=== PATIENT | female | born 1980 | race Caucasian/White ===

== ENCOUNTER 2016-11-10 07:52 | Outpatient (CLI) | payer OTHER ==
[2016-11-10] MEDS ORDERED: GADOBUTROL 10 MMOL/10 ML VIAL IVP ONE (09:27)
== END 2016-11-10 07:53 | disposition home or self-care (01) ==
DX: G43.009 Migraine without aura, not intractable, without status migrainosus (principal)
CPT/HCPCS: 70553; A9585

== ENCOUNTER 2016-11-14 09:08 | Outpatient (CLI) | payer OTHER | END 2016-11-14 09:09 | disposition home or self-care (01) | DX: E06.3 Autoimmune thyroiditis (principal); R59.0 Localized enlarged lymph nodes ==

== ENCOUNTER 2018-10-06 13:28 | Outpatient (CLI) | payer OTHER | END 2018-10-06 13:29 | disposition home or self-care (01) | LOC: SC 13:28 | PROVIDERS: ATTEND Internal Medicine Pulmonary Disease | DX: G47.00 Insomnia, unspecified (principal); G47.8 Other sleep disorders; R53.83 Other fatigue | CPT/HCPCS: 99203; 99212 ==

== ENCOUNTER 2018-10-30 20:20 | Outpatient (CLI) | payer OTHER | END 2018-10-30 20:21 | disposition home or self-care (01) | LOC: SC 20:20 | PROVIDERS: ATTEND Internal Medicine Pulmonary Disease | DX: G47.61 Periodic limb movement disorder (principal); R06.83 Snoring; G47.8 Other sleep disorders; R53.83 Other fatigue | CPT/HCPCS: 95810 ==

== ENCOUNTER 2018-12-15 10:18 | Outpatient (CLI) | payer OTHER | END 2018-12-15 10:19 | disposition home or self-care (01) | LOC: SC 10:18 | PROVIDERS: ATTEND Internal Medicine Pulmonary Disease | DX: G47.61 Periodic limb movement disorder (principal) | CPT/HCPCS: 99212; 99213 ==

== ENCOUNTER 2019-01-12 09:13 | Outpatient (CLI) | payer OTHER | END 2019-01-12 09:14 | disposition home or self-care (01) | LOC: SC 09:13 | PROVIDERS: ATTEND Internal Medicine Pulmonary Disease | DX: G47.61 Periodic limb movement disorder (principal); G47.00 Insomnia, unspecified | CPT/HCPCS: 99212; 99213 ==

== ENCOUNTER 2019-06-15 18:51 | Emergency (ER) | payer OTHER ==
[2019-06-15 18:56] VITALS: BP 137/87
--- NOTE | 2019-06-15 18:58 | ED Physician Documentation ---
History of Present Illness - Stated complaint Stated Complaint: FEM - Chief complaint Chief Complaint: Abd Pain - History obtained from History obtained from: Patient - History of Present Illness Timing: Today Pain level max: 2 Pain level now: 2 Improved by: nothing Worsened by: nothing - Additonal information Additional information: 38-year-old female presents to the emergency department with dysuria and hematuria. Started today. No fevers. No back pain. No vaginal discharge. Took Plan B yesterday. Had a new sexual partner on Saturday. Review of Systems Constitutional: denies: Fever GI: denies: Vomiting Skin: denies: Rash Musculoskeletal: denies: Neck pain, Back pain Neurologic: denies: Headache PD PAST MEDICAL HISTORY - Past Medical History Past Medical History: Yes Endocrine/Autoimmune: HyPOthyroidism - Past Surgical History Past Surgical History: Yes HEENT: Tonsil/Adenoidectomy - Present Medications Home Medications: Ambulatory Orders Medication Instructions Recorded Confirmed Esomeprazole Magnesium [Nexium] 02/21/14 02/21/14 Levothyroxine Sodium [Synthroid] 175 mcg PO 02/21/14 02/21/14 Modafinil [Provigil] 02/21/14 02/21/14 Nortriptyline HCl 150 02/21/14 02/21/14 Nitrofurantoin Monohyd/M-Cryst 100 mg PO BID #10 capsule 06/15/19 [Macrobid 100 mg Capsule] Phenazopyridine HCl [Pyridium] 200 mg PO TID PRN #6 tablet 06/15/19 - Allergies Allergies/Adverse Reactions: Allergies Allergy/AdvReac Type Severity Reaction Status Date / Time No Known Drug Allergies Allergy Verified 06/15/19 18:56 - Social History Does the pt smoke?: No Smoking Status: Never smoker Does the pt drink ETOH?: No Does the pt have substance abuse?: No - Immunizations Immunizations are current?: Yes PD ED PE NORMAL - Vitals Vital signs reviewed: Yes - General General: Alert and oriented X 3, No acute distress - HEENT HEENT: Moist mucous membranes - Neck Neck: Supple, no meningeal sign - Cardiac Cardiac: RRR - Respiratory Respiratory: No respiratory distress, Clear bilaterally - Abdomen Abdomen: Soft, Non tender, Non distended - Back Back: No CVA TTP - Derm Derm: Warm and dry - Neuro Neuro: Alert and oriented X 3 Results - Vitals Vitals: Vital Signs - 24 hr 06/15/19 18:53 Temperature 36.5 C Heart Rate 97 Respiratory 15 Rate Blood Pressure 137/87 H O2 Saturation 100 Oxygen O2 Source Room air - Labs Labs: Laboratory Tests 06/15/19 19:02 Urine Color RED/BLOODY Urine Clarity BLOODY Urine pH 7.0 Ur Specific [place] 1.020 Urine Protein >=300 H Urine Glucose (UA) NEGATIVE Urine Ketones 40 H Urine Occult Blood LARGE H Urine Nitrite POSITIVE H Urine Bilirubin NEGATIVE Urine Urobilinogen 1 (NORMAL) Ur Leukocyte Esterase SMALL H Urine RBC TNTC H Urine WBC >25 H Ur Squamous Epith Cells NONE SEEN Urine Bacteria Many H Ur Microscopic Review INDICATED Urine Culture Comments INDICATED Urine HCG, Qual NEGATIVE PD MEDICAL DECISION MAKING - ED course Complexity details: reviewed results, re-evaluated patient, considered differential, d/w patient ED course: 38-year-old female with a UTI. Will place on antibiotics for home. We will follow-up with her doctor for further care. Does not sound consistent with a sexually transmitted disease. No evidence of pyelonephritis. Patient counseled regarding signs and symptoms for which I believe and urgent re-evaluation would be necessary. Patient with good understanding of and agreement to plan and is comfortable going home at this time This document was made in part using voice recognition software. While efforts are made to proofread this document, sound alike and grammatical errors may occur. Departure - Departure Disposition: 01 Home, Self Care Clinical Impression: Urinary tract infection Qualifiers: Urinary tract infection type: acute cystitis Hematuria presence: with hematuria Qualified Code(s): N30.01 - Acute cystitis with hematuria Condition: Good Instructions: ED UTI Cystitis Female Follow-Up: Your,doctor in 1 week if not better [Other] Prescriptions: Nitrofurantoin Monohyd/M-Cryst [Macrobid 100 mg Capsule] 100 mg PO BID #10 capsule Phenazopyridine HCl [Pyridium] 200 mg PO TID PRN #6 tablet PRN Reason: dysuria Comments: Take all antibiotics until gone. Return if you worsen. Follow-up with your doctor in 1 week if not better. Return immediately for fevers or worsening pain. Discharge Date/Time: 06/15/19 20:05
[2019-06-15 19:25] LABS: BILIRUBIN,URINE NEGATIVE (NEGATIVE); GLUCOSE, URINE (UA) NEGATIVE (NEGATIVE); KETONES,URINE (UA) 40 mg/dL (NEGATIVE); LEUKOCYTE ESTERASE, URINE SMALL (NEGATIVE); NITRITE,URINE POSITIVE (NEGATIVE); OCCULT BLOOD,URINE LARGE (NEGATIVE); PROTEIN,URINE >=300 mg/dL (NEGATIVE); UROBILINOGEN,URINE 1 (NORMAL) E.U./dL (NORMAL)
[2019-06-15 19:29] LABS: CLARITY,URINE BLOODY (CLEAR); HCG UR QUAL NEGATIVE
[2019-06-15 19:30] LABS: BACTERIA,URINE Many /HPF (None Seen); RBC,URINE TNTC /HPF (0-5); SQUAMOUS EPITHELIAL CELL,UR NONE SEEN (<= Few)
[2019-06-15] MEDS ORDERED: NITROFURANTOIN MACRO 100 MG CAPSULE PO STA (19:38)
[2019-06-15] MEDS ORDERED: PHENAZOPYRIDINE 100 MG TABLET PO STA (19:38)
== END 2019-06-15 20:05 | disposition home or self-care (01) ==
LOC: ED 18:51
DX: N30.01 Acute cystitis with hematuria (principal)
CPT/HCPCS: 81001; 81025; 87086; 87181; 99283; 99284; A9270; 81003

== ENCOUNTER 2019-12-12 17:18 | Emergency (ER) | payer OTHER ==
--- NOTE | 2019-12-12 17:24 | ED Physician Documentation ---
PD HPI LOWER EXT INJURY - Stated complaint Stated Complaint: RT KNEE INJURY - Chief complaint Chief Complaint: Trauma Ext - History obtained from History obtained from: Patient - History of Present Illness PD HPI LOW EXT INJURY LOCATION: Right, Knee Type of injury: Fall (She was out hiking on a trail and her left foot slid causing her to fall forward onto her right knee. She has pain along the anteromedial aspect of the right knee. There is no twisting component. She states it hurts for weightbearing and the pushoff part of gait. No clicking popping or giving out. She has not had prior knee problems.) Where injury occurred: [place] Timing - onset: How many hours ago (2), Today Timing - details: Abrupt onset, Still present Worsened by: Moving, Palpating Associated symptoms: Swelling (swelling with bruising medial aspect knee). No: Weakness, Numbness Contributing factors: No: Prior ortho surgery Similar symptoms before: Has not had sx before Review of Systems Constitutional: denies: Fever Throat: denies: Sore throat Respiratory: denies: Dyspnea, Cough Skin: denies: Abrasion (s), Laceration (s) Musculoskeletal: reports: Joint pain (right knee only) Neurologic: denies: Focal weakness, Numbness PD PAST MEDICAL HISTORY - Past Medical History Endocrine/Autoimmune: HyPOthyroidism - Past Surgical History Past Surgical History: Yes HEENT: Tonsil/Adenoidectomy - Present Medications Home Medications: Ambulatory Orders Medication Instructions Recorded Confirmed Biotin 2 cap DAILY 12/12/19 12/12/19 Eszopiclone [Lunesta] 0.5 tab DAILY 12/12/19 12/12/19 Mecobalamin [B12 Active] 1 tab DAILY 12/12/19 12/12/19 Nortriptyline HCl 50 mg DAILY 12/12/19 12/12/19 - Allergies Allergies/Adverse Reactions: Allergies Allergy/AdvReac Type Severity Reaction Status Date / Time No Known Drug Allergies Allergy Verified 12/12/19 17:21 - Social History Does the pt smoke?: No Smoking Status: Never smoker Does the pt drink ETOH?: No Does the pt have substance abuse?: No - Immunizations Immunizations are current?: Yes PD ED PE NORMAL - Vitals Vital signs reviewed: Yes - General General: Alert and oriented X 3, No acute distress, Well developed/nourished - Derm Derm: Normal color, Warm and dry - Extremities Extremities: Other (There is a limping component to her gait. She is able to bear weight on both legs. The right knee shows some tenderness along the anteromedial aspect of the knee but not at the patella. The medial joint line is not tender. She is able to extend fully with the right knee without any quadriceps pain. The patellar tendon is intact. Ligamentous testing varus and valgus as well as cruciate testing did not show any laxity or pain. Modified [place] does not cause any meniscal type pain. There is no crepitance on passive range of motion. There is some localized bruising and swelling along the proximal medial tibial ridge.) Results - Vitals Vitals: Vital Signs - 24 hr 12/12/19 17:21 Temperature 36.7 C Heart Rate 94 Respiratory 16 Rate Blood Pressure 117/76 O2 Saturation 100 Oxygen O2 Source Room air - Rads (name of study) right knee Radiology: Prelim report reviewed, See rad report PD MEDICAL DECISION MAKING - ED course Complexity details: reviewed results, considered differential (Likely just localized bruising along the medial knee. No obvious ligamentous injury and it was not a twist component. Will get an x-ray to ensure no bony problems. She declines the need for crutches.), d/w patient Departure - Departure Disposition: 01 Home, Self Care Clinical Impression: Knee contusion Qualifiers: Encounter type: initial encounter Laterality: right Qualified Code(s): S80.01XA - Contusion of right knee, initial encounter Condition: Stable Record reviewed to determine appropriate education?: Yes Instructions: ED Contusion Lower Ext Comments: Your x-ray appears normal. The knee exam does not suggest any ligamentous tears or significant injury. I think it is just bruised well and should be sore for a few days and slowly better. Activity as tolerated. Ibuprofen 3 times a day for the next few days. Ice and elevate and Jp wrap for the swelling. Recheck if not improved over the next 3 to 5 days. Forms: Activity restrictions
[2019-12-12 17:25] VITALS: BP 117/76
[2019-12-12] MEDS ORDERED: IBUPROFEN 600 MG TABLET PO STA (17:35)
--- NOTE | 2019-12-12 18:16 | XRAY Report ---
Reason: fall to right knee/pain medially Procedure Date: 12/12/2019 Accession Number: [id number] / [id number] Procedure: XR - Knee 4 View RT CPT Code: Final Report FULL RESULT: EXAM: RIGHT KNEE RADIOGRAPHY EXAM DATE: 12/12/2019 06:06 PM. CLINICAL HISTORY: Fall to right knee/pain medially. COMPARISON: None. TECHNIQUE: 4 views. FINDINGS: Bones: Normal. No fractures or bone lesions. Joints: Normal. No effusion. No subluxations. Soft Tissues: Normal. No soft tissue swelling. IMPRESSION: Negative right knee RADIA
== END 2019-12-12 18:20 | disposition home or self-care (01) ==
LOC: ED 17:18
DX: S80.01XA Contusion of right knee, initial encounter (principal); W18.39XA Other fall on same level, initial encounter; Y93.01 Activity, walking, marching and hiking; Y92.830 Public park as the place of occurrence of the external cause
CPT/HCPCS: 73564; 99283; A9270

== ENCOUNTER 2020-04-07 21:00 | Emergency (ER) | payer OTHER ==
--- NOTE | 2020-04-07 21:08 | ED Physician Documentation ---
History of Present Illness - Stated complaint Stated Complaint: ALLERGIC REACTION - Chief complaint Chief Complaint: Neuro - History obtained from History obtained from: Patient - History of Present Illness Timing: Enter time (19:00), Today Pain level max: 0 Pain level now: 0 Improved by: nothing Worsened by: no exacerbating factors - Additonal information Additional information: c/o feeling jittery and generalized tremulousness, stuttering/stammering speech. symptoms began approximately 7 PM tonight. Patient is scheduled for allergy testing tomorrow; patient says that she was instructed to stop her lunesta, claritin, and nortriptylene 1 week ago. Review of Systems Constitutional: reports: Reviewed and negative Cardiac: reports: Reviewed and negative Respiratory: reports: Reviewed and negative GI: reports: Reviewed and negative : denies: Dysuria, Frequency, Now EGA Neurologic: reports: Difficulty speaking. denies: Generalized weakness, Focal weakness, Numbness, Confused, Altered mental status, Headache PD PAST MEDICAL HISTORY - Past Medical History Respiratory: Asthma, Sleep apnea Neuro: Migraines Endocrine/Autoimmune: HyPOthyroidism - Past Surgical History Past Surgical History: Yes HEENT: Tonsil/Adenoidectomy - Present Medications Home Medications: Ambulatory Orders Medication Instructions Recorded Confirmed Biotin 2 cap DAILY 12/12/19 12/12/19 Eszopiclone [Lunesta] 0.5 tab DAILY 12/12/19 12/12/19 Mecobalamin [B12 Active] 1 tab DAILY 12/12/19 12/12/19 Nortriptyline HCl 50 mg DAILY 12/12/19 12/12/19 - Allergies Allergies/Adverse Reactions: Allergies Allergy/AdvReac Type Severity Reaction Status Date / Time No Known Drug Allergies Allergy Verified 04/07/20 21:05 - Social History Does the pt smoke?: No Smoking Status: Never smoker Does the pt drink ETOH?: No Does the pt have substance abuse?: No - Immunizations Immunizations are current?: Yes PD ED PE NORMAL - Vitals Vital signs reviewed: Yes - General General: Alert and oriented X 3, Well developed/nourished, Other (tremulous (generalized); stammering speech) - HEENT HEENT: PERRL, EOMI, Moist mucous membranes - Neck Neck: Supple, no meningeal sign - Cardiac Cardiac: RRR, No murmur - Respiratory Respiratory: No respiratory distress, Clear bilaterally - Abdomen Abdomen: Soft, Non tender - Neuro Neuro: Alert and oriented X 3, psychology teacher 2-12 intact, No motor deficit, No sensory deficit Eye Opening: Spontaneous Motor: Obeys Commands Verbal: Oriented GCS Score: 15 - Psych Psych: Normal mood, Normal affect Results - Vitals Vitals: Vital Signs - 24 hr 04/07/20 04/07/20 04/07/20 21:01 21:26 21:38 Temperature 36.3 C L Heart Rate 100 95 91 Respiratory 18 13 11 L Rate Blood Pressure 122/90 H 143/73 H 110/67 O2 Saturation 98 98 99 04/07/20 04/07/20 04/07/20 22:06 22:32 23:00 Temperature Heart Rate 82 90 86 Respiratory 12 11 L 13 Rate Blood Pressure 120/79 114/68 120/72 O2 Saturation 100 100 100 04/07/20 23:30 Temperature Heart Rate 97 Respiratory 14 Rate Blood Pressure 99/67 O2 Saturation 100 Oxygen O2 Source Room air - Labs Labs: Laboratory Tests 04/07/20 04/07/20 21:46 21:46 WBC 6.6 RBC 3.83 L Hgb 12.1 Hct 36.0 L MCV 94.0 MCH 31.6 H MCHC 33.6 RDW 12.2 Plt Count 255 MPV 10.4 Neut # (Auto) 4.2 Lymph # (Auto) 1.8 [place] # (Auto) 0.4 Eos # (Auto) 0.1 Baso # (Auto) 0.0 Absolute Nucleated RBC 0.00 Nucleated RBC % 0.0 Sodium 141 Potassium 3.7 Chloride 108 Carbon Dioxide 26 Anion Gap 7.0 BUN 8 Creatinine 0.5 Estimated GFR (MDRD) 139 Glucose 114 H Calcium 9.2 Total Bilirubin 0.9 AST 17 ALT 22 Alkaline Phosphatase 28 L Total Protein 6.7 Albumin 4.7 Globulin 2.0 L Albumin/Globulin Ratio 2.4 H Lipase 30 PD MEDICAL DECISION MAKING - ED course Complexity details: reviewed results, re-evaluated patient, considered differential, d/w patient ED course: unremarkable blood test results. Improved without intervention; on reassessment, she is no longer tremulous and her speech is clear. I discussed with her possibility of discontinuation syndrome due to suddenly stopping her nortriptylene: although the time course of one week since last dose would be unusual, her symptoms are c/w this diagnosis. I suggested she restart her nortriptylene, but she prefers to have her allergy testing tomorrow and then resume her prescribed medications. Departure - Departure Disposition: 01 Home, Self Care Clinical Impression: Antidepressant discontinuation syndrome Condition: Good Instructions: ED Symptoms No Dx Follow-Up: Gage Faulkner MD [Primary Care Provider] - Comments: Your symptoms might be related to the recent discontinuation of the nortriptylene. After your tests tomorrow, resume taking the medication as prescribed. If the symptoms are due to stopping this medication, restarting it should rapidly lead to resolution of the symptoms (within hours). Otherwise, if symptoms continue, follow up with your primary care provider to discuss need for further testing Discharge Date/Time: 04/07/20 23:47
[2020-04-07 21:51] LABS: BASOPHILS % (AUTO) 0.6 %; EOSINOPHILS # (AUTO) 0.1 10^3/uL (0.0-0.7); EOSINOPHILS % (AUTO) 1.7 %; HGB - HEMOGLOBIN 12.1 g/dL (12.0-16.0); LYMPHOCYTES # (AUTO) 1.8 10^3/uL (1.5-3.5); LYMPHOCYTES % (AUTO) 27.9 %; MEAN CORPUSCULAR HEMOGLOBIN 31.6 pg (27.0-31.0); MEAN CORPUSCULAR HGB CONC 33.6 g/dL (32.0-36.0); MEAN PLATELET VOLUME 10.4 fL (7.9-10.8); MONOCYTES # (AUTO) 0.4 10^3/uL (0.0-1.0); NEUTROPHILS # (AUTO) 4.2 10^3/uL (1.5-6.6); NEUTROPHILS % (AUTO) 63.5 %; PLT - PLATELET COUNT 255 10^3/uL (130-450); RED BLOOD COUNT 3.83 10^6/uL (4.20-5.40); RED CELL DISTRIBUTION WIDTH 12.2 % (12.0-15.0); WHITE BLOOD COUNT 6.6 x10^3/uL (4.8-10.8)
[2020-04-07 22:04] LABS: ALBUMIN 4.7 g/dL (3.2-5.5); ALBUMIN/GLOBULIN RATIO 2.4 (1.0-2.2); BILIRUBIN,TOTAL 0.9 mg/dL (0.2-1.0); CALCIUM 9.2 mg/dL (8.5-10.3); CREATININE 0.5 mg/dL (0.4-1.0); TOTAL PROTEIN 6.7 g/dL (6.7-8.2)
[2020-04-07 23:42] VITALS: BP 99/67
== END 2020-04-07 23:47 | disposition home or self-care (01) ==
LOC: ED 21:00
DX: G25.2 Other specified forms of tremor (principal); R47.82 Fluency disorder in conditions classified elsewhere; T43.015A Adverse effect of tricyclic antidepressants, initial encounter
CPT/HCPCS: 36415; 80053; 83690; 85025; 99284

== ENCOUNTER 2020-05-24 15:54 | Outpatient (CLI) | payer OTHER ==
--- NOTE | 2020-05-24 17:27 | MRI Report ---
PROCEDURE: Foot LT W/O INDICATIONS: LT FOOT PAIN TECHNIQUE: Noncontrast coronal and sagittal T1 spin echo and STIR; axial T1 spin echo and T2 fast spin echo with fat saturation through the left foot. COMPARISON: None. FINDINGS: Image quality: Excellent. Bones: The visualized bone marrow demonstrates normal signal on all sequences. The overlying cortex appears intact. No fractures lines or intra-osseous lesions. Soft tissues: There is subcutaneous soft tissue edema in the region of the fiducial marker placed al delta the lateral aspect of the forefoot at the fifth metatarsal base. There is normal appearance of th e underlying peroneus brevis tendon. No discrete mass identified. Mild posterior tibialis tenosynovitis. IMPRESSION: Nonspecific subcutaneous presumed infectious or inflammatory cellulitis and edema in the area marked by the fiducial, at the fifth metatarsal base. No evidence of fracture. No discrete mass identified. No focal fluid collection. Recommend clinical correlation and management. Mild posterior tibialis tenosynovitis Reviewed by: Moe Chow MD on 05/24/2020 5:25 PM PDT Approved by: Moe Chow MD on 05/24/2020 5:25 PM PDT Station ID: [id number]
== END 2020-05-24 15:55 | disposition home or self-care (01) ==
LOC: DI 15:54
DX: M65.872 Other synovitis and tenosynovitis, left ankle and foot (principal)

== ENCOUNTER 2020-06-23 16:35 | Emergency (ER) | payer OTHER ==
[2020-06-23 17:13] LABS: BASOPHILS % (AUTO) 0.5 %; EOSINOPHILS # (AUTO) 0.1 10^3/uL (0.0-0.7); EOSINOPHILS % (AUTO) 2.4 %; HGB - HEMOGLOBIN 12.5 g/dL (12.0-16.0); LYMPHOCYTES # (AUTO) 1.7 10^3/uL (1.5-3.5); LYMPHOCYTES % (AUTO) 31.3 %; MEAN CORPUSCULAR HEMOGLOBIN 31.3 pg (27.0-31.0); MEAN CORPUSCULAR HGB CONC 32.3 g/dL (32.0-36.0); MEAN CORPUSCULAR VOLUME 96.8 fL (81.0-99.0); MEAN PLATELET VOLUME 9.8 fL (7.9-10.8); MONOCYTES # (AUTO) 0.3 10^3/uL (0.0-1.0); MONOCYTES % (AUTO) 5.7 %; NEUTROPHILS # (AUTO) 3.3 10^3/uL (1.5-6.6); NEUTROPHILS % (AUTO) 59.7 %; PLT - PLATELET COUNT 255 10^3/uL (130-450); WHITE BLOOD COUNT 5.5 x10^3/uL (4.8-10.8)
[2020-06-23 17:27] LABS: ALBUMIN 4.4 g/dL (3.2-5.5); ALBUMIN/GLOBULIN RATIO 1.6 (1.0-2.2); BILIRUBIN,TOTAL 0.5 mg/dL (0.2-1.0); CALCIUM 9.4 mg/dL (8.5-10.3); CREATININE 0.7 mg/dL (0.4-1.0); TOTAL PROTEIN 7.1 g/dL (6.7-8.2)
[2020-06-23 17:28] LABS: BILIRUBIN,URINE NEGATIVE (NEGATIVE); GLUCOSE, URINE (UA) NEGATIVE (NEGATIVE); KETONES,URINE (UA) NEGATIVE (NEGATIVE); LEUKOCYTE ESTERASE, URINE NEGATIVE (NEGATIVE); NITRITE,URINE NEGATIVE (NEGATIVE); OCCULT BLOOD,URINE NEGATIVE (NEGATIVE); PROTEIN,URINE NEGATIVE (NEGATIVE); UROBILINOGEN,URINE 0.2 (NORMAL) E.U./dL (NORMAL)
[2020-06-23 17:31] LABS: CLARITY,URINE CLEAR (CLEAR); HCG UR QUAL NEGATIVE
--- NOTE | 2020-06-23 17:54 | ED Physician Documentation ---
History of Present Illness - Stated complaint Stated Complaint: FATIGUE - Chief complaint Chief Complaint: General - History obtained from History obtained from: Patient - History of Present Illness Timing: Today Pain level max: 0 Pain level now: 0 - Additonal information Additional information: 39-year-old female presents the emergency department stating that she has felt weak for the past several weeks, she states she has had issues with hypoglycemia in the past and has been checking her blood sugar throughout the day. The lowest blood sugar was approximately 76. She states that she feels better for about 15 minutes after she eats. Has seen an paintings restorer in the past but not recently. No changes to her medications. Unclear what other work-up has been done. Nothing makes it worse Review of Systems Ten Systems: 10 systems reviewed and negative Constitutional: denies: Fever, Chills Nose: denies: Rhinorrhea / runny nose, Congestion Throat: denies: Sore throat Cardiac: denies: Chest pain / pressure Respiratory: denies: Dyspnea, Cough GI: denies: Abdominal Pain, Nausea, Vomiting, Diarrhea : denies: Now EGA Skin: denies: Rash Musculoskeletal: denies: Neck pain, Back pain Neurologic: denies: Headache PD PAST MEDICAL HISTORY - Past Medical History Respiratory: Asthma, Sleep apnea Neuro: Migraines Endocrine/Autoimmune: HyPOthyroidism - Past Surgical History Past Surgical History: Yes HEENT: Tonsil/Adenoidectomy - Present Medications Home Medications: Ambulatory Orders Medication Instructions Recorded Confirmed Biotin 2 cap DAILY 12/12/19 12/12/19 Eszopiclone [Lunesta] 0.5 tab DAILY 12/12/19 12/12/19 Mecobalamin [B12 Active] 1 tab DAILY 12/12/19 12/12/19 Nortriptyline HCl 50 mg DAILY 12/12/19 12/12/19 - Allergies Allergies/Adverse Reactions: Allergies Allergy/AdvReac Type Severity Reaction Status Date / Time No Known Drug Allergies Allergy Verified 06/23/20 16:46 - Social History Does the pt smoke?: No Smoking Status: Never smoker Does the pt drink ETOH?: No Does the pt have substance abuse?: No - Immunizations Immunizations are current?: Yes - POLST Patient has POLST: No PD ED PE NORMAL - Vitals Vital signs reviewed: Yes - General General: Alert and oriented X 3, No acute distress - HEENT HEENT: Moist mucous membranes - Neck Neck: Supple, no meningeal sign - Cardiac Cardiac: RRR, Strong equal pulses - Respiratory Respiratory: No respiratory distress, Clear bilaterally - Abdomen Abdomen: Soft, Non tender, Non distended - Derm Derm: Warm and dry - Neuro Neuro: Alert and oriented X 3 - Psych Psych: Normal mood, Normal affect Results - Vitals Vitals: Vital Signs - 24 hr 06/23/20 06/23/20 16:47 18:06 Temperature 36.9 C 36.4 C L Heart Rate 85 79 Respiratory 16 17 Rate Blood Pressure 132/67 H 110/80 O2 Saturation 100 100 Oxygen O2 Source Room air - Labs Labs: Laboratory Tests 06/23/20 06/23/20 06/23/20 16:46 17:10 17:10 WBC 5.5 RBC 4.00 L Hgb 12.5 Hct 38.7 MCV 96.8 MCH 31.3 H MCHC 32.3 RDW 12.0 Plt Count 255 MPV 9.8 Neut # (Auto) 3.3 Lymph # (Auto) 1.7 [place] # (Auto) 0.3 Eos # (Auto) 0.1 Baso # (Auto) 0.0 Absolute Nucleated RBC 0.00 Nucleated RBC % 0.0 Sodium 141 Potassium 4.6 Chloride 103 Carbon Dioxide 26 Anion Gap 12.0 BUN 13 Creatinine 0.7 Estimated GFR (MDRD) 94 Glucose 85 POC Whole Bld Glucose 88 Calcium 9.4 Total Bilirubin 0.5 AST 15 ALT 21 Alkaline Phosphatase 31 L Total Protein 7.1 Albumin 4.4 Globulin 2.7 Albumin/Globulin Ratio 1.6 Lipase 35 Urine Color Urine Clarity Urine pH Ur Specific [place] Urine Protein Urine Glucose (UA) Urine Ketones Urine Occult Blood Urine Nitrite Urine Bilirubin Urine Urobilinogen Ur Leukocyte Esterase Ur Microscopic Review Urine Culture Comments Urine HCG, Qual 06/23/20 17:23 WBC RBC Hgb Hct MCV MCH MCHC RDW Plt Count MPV Neut # (Auto) Lymph # (Auto) [place] # (Auto) Eos # (Auto) Baso # (Auto) Absolute Nucleated RBC Nucleated RBC % Sodium Potassium Chloride Carbon Dioxide Anion Gap BUN Creatinine Estimated GFR (MDRD) Glucose POC Whole Bld Glucose Calcium Total Bilirubin AST ALT Alkaline Phosphatase Total Protein Albumin Globulin Albumin/Globulin Ratio Lipase Urine Color YELLOW Urine Clarity CLEAR Urine pH 7.0 Ur Specific [place] 1.020 Urine Protein NEGATIVE Urine Glucose (UA) NEGATIVE Urine Ketones NEGATIVE Urine Occult Blood NEGATIVE Urine Nitrite NEGATIVE Urine Bilirubin NEGATIVE Urine Urobilinogen 0.2 (NORMAL) Ur Leukocyte Esterase NEGATIVE Ur Microscopic Review NOT INDICATED Urine Culture Comments NOT INDICATED Urine HCG, Qual NEGATIVE PD MEDICAL DECISION MAKING - ED course Complexity details: reviewed results, re-evaluated patient, considered differential, d/w patient ED course: Unclear etiology of the patient's symptoms. No acute laboratory findings. No hypoglycemia. No anemia. She would likely benefit from an autoimmune disease work-up as well is likely checking her vitamin levels. Patient is well- appearing, nontoxic. Afebrile. Ambulating with a normal steady gait here. We will have her follow-up with her doctor for further care. Patient counseled regarding signs and symptoms for which I believe and urgent re-evaluation would be necessary. Patient with good understanding of and agreement to plan and is comfortable going home at this time This document was made in part using voice recognition software. While efforts are made to proofread this document, sound alike and grammatical errors may occur. Departure - Departure Disposition: 01 Home, Self Care Clinical Impression: Fatigue Qualifiers: Fatigue type: unspecified Qualified Code(s): R53.83 - Other fatigue Condition: Good Instructions: ED Weakness [facility] Follow-Up: López Richardson MD [Physician No Access] - Within 1 week Comments: Your symptoms is unclear today. You should follow-up with your doctor and/or endocrinology for further care. If you have not been tested for autoimmune disorders, this should be performed. Your doctor can order these tests for you. Discharge Date/Time: 06/23/20 18:13
[2020-06-23 18:07] VITALS: BP 110/80
== END 2020-06-23 18:13 | disposition home or self-care (01) ==
LOC: ED 16:35
DX: R53.83 Other fatigue (principal)
CPT/HCPCS: 36415; 80053; 81001; 81003; 81025; 83690; 85025; 87086; 99283; 99284

== ENCOUNTER 2020-11-01 13:59 | Emergency (ER) | payer OTHER ==
--- NOTE | 2020-11-01 14:13 | ED Physician Documentation ---
PD HPI ABD PAIN - Stated complaint Stated Complaint: ABD CRAMPING/BACK PX - Chief complaint Chief Complaint: Abd Pain - History obtained from History obtained from: Patient - History of Present Illness Timing - onset: Yesterday Timing - duration: Days (2) Timing - details: Gradual onset, Still present, Waxing and waning (coming in waves of cramping pain) Quality: Cramping, Aching, Fullness/distended. No: Sharp Location: Periumbilical, RLQ, LLQ Radiation: Lower back. No: Left flank, Right flank Improved by: Laying still Worsened by: Eating, Moving, Palpation. No: Breathing Associated symptoms: Nausea, Constipation (had not had BM for 2-3 days, and then was firm with some straining.). No: Fever, Vomiting, Diarrhea Similar symptoms before: No diagnosis (Dx with IBS due to cramping pains intermittently.) Recently seen: Not recently seen Review of Systems Constitutional: denies: Fever, Chills Nose: denies: Rhinorrhea / runny nose, Congestion Throat: denies: Sore throat Respiratory: denies: Cough GI: reports: Abdominal Pain, Abdominal Swelling, Nausea, Constipation. 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 - Past Surgical History Past Surgical History: Yes HEENT: Tonsil/Adenoidectomy - Present Medications Home Medications: Ambulatory Orders Medication Instructions Recorded Confirmed Biotin 2 cap DAILY 12/12/19 11/01/20 Eszopiclone [Lunesta] 0.5 tab DAILY 12/12/19 12/12/19 Mecobalamin [B12 Active] 1 tab DAILY 12/12/19 11/01/20 Nortriptyline HCl 50 mg DAILY 12/12/19 11/01/20 Ibuprofen [Motrin] 600 mg PO TID PRN #25 tab 11/01/20 Levothyroxine Sodium [Synthroid] 224 mcg PO DAILY 11/01/20 11/01/20 polyethylene glycoL 3350 [Miralax] 17 gm PO DAILY PRN #1 bottle 11/01/20 - Allergies Allergies/Adverse Reactions: Allergies Allergy/AdvReac Type Severity Reaction Status Date / Time No Known Drug Allergies Allergy Verified 11/01/20 14:09 - Social History Does the pt smoke?: No Smoking Status: Never smoker Does the pt drink ETOH?: No Does the pt have substance abuse?: No - Immunizations Immunizations are current?: Yes - POLST Patient has POLST: No PD ED PE NORMAL - Vitals Vital signs reviewed: Yes - General General: Alert and oriented X 3, Well developed/nourished, Other (appears in pain with lower abd tenderness, waves of crampy pain. ) - Neck Neck: Supple, no meningeal sign, No adenopathy - Cardiac Cardiac: RRR, No murmur - Respiratory Respiratory: Clear bilaterally - Abdomen Abdomen: Normal bowel sounds, Soft, No organomegaly, Other (her abd is generally distended but particularly lower abd. With increased bowel sounds left abd and central. Tender mid abd to lower abd with some guarding. No percussion tenderness. ) - Female Female : Deferred - Rectal Rectal: Deferred - Back Back: No CVA TTP - Derm Derm: Normal color, Warm and dry Results - Vitals Vitals: Vital Signs - 24 hr 11/01/20 11/01/20 11/01/20 14:02 14:23 16:32 Temperature 36 C L 36.8 C 36.6 C Heart Rate 87 76 84 Respiratory 18 16 18 Rate Blood Pressure 119/74 132/76 H 123/77 O2 Saturation 99 100 100 11/01/20 17:19 Temperature Heart Rate 78 Respiratory 14 Rate Blood Pressure 126/78 O2 Saturation 100 Oxygen O2 Source Room air - Labs Labs: Laboratory Tests 11/01/20 11/01/20 11/01/20 14:18 14:18 14:44 WBC 6.3 RBC 4.08 L Hgb 12.9 Hct 38.8 MCV 95.1 MCH 31.6 H MCHC 33.2 RDW 12.1 Plt Count 248 MPV 10.4 Neut # (Auto) 4.1 Lymph # (Auto) 1.7 [place] # (Auto) 0.3 Eos # (Auto) 0.1 Baso # (Auto) 0.0 Absolute Nucleated RBC 0.00 Nucleated RBC % 0.0 Sodium 141 Potassium 3.9 Chloride 102 Carbon Dioxide 25 Anion Gap 14.0 H BUN 11 Creatinine 0.7 Estimated GFR (MDRD) 94 Glucose 91 Calcium 9.6 Total Bilirubin 0.4 AST 19 ALT 20 Alkaline Phosphatase 32 L Total Protein 7.6 Albumin 4.7 Globulin 2.9 Albumin/Globulin Ratio 1.6 Lipase 30 Urine Color YELLOW Urine Clarity CLEAR Urine pH 7.5 Ur Specific [place] 1.010 Urine Protein NEGATIVE Urine Glucose (UA) NEGATIVE Urine Ketones NEGATIVE Urine Occult Blood MODERATE H Urine Nitrite NEGATIVE Urine Bilirubin NEGATIVE Urine Urobilinogen 0.2 (NORMAL) Ur Leukocyte Esterase NEGATIVE Urine RBC 0-5 Urine WBC 0-3 Ur Squamous Epith Cells RARE Squamous Urine Bacteria None Seen Ur Microscopic Review INDICATED Urine Culture Comments NOT INDICATED Urine HCG, Qual NEGATIVE - Rads (name of study) abd CT Radiology: Prelim report reviewed (no acute process to explain the pain), See rad report PD MEDICAL DECISION MAKING - ED course Complexity details: reviewed results (no acute findings to explain pain. ), re- evaluated patient (improved with fluids and pain meds. ), considered differential, d/w patient Departure - Departure Disposition: 01 Home, Self Care Clinical Impression: Bilateral lower abdominal cramping Constipation Qualifiers: Constipation type: unspecified constipation type Qualified Code(s): K59.00 - Constipation, unspecified Condition: Stable Record reviewed to determine appropriate education?: Yes Instructions: ED Abdominal Pain Unkn Cause, ED Constipation Follow-Up: [facility] [Provider Group] Prescriptions: polyethylene glycoL 3350 [Miralax] 17 gm PO DAILY PRN #1 bottle PRN Reason: Constipation Ibuprofen [Motrin] 600 mg PO TID PRN #25 tab PRN Reason: Pain Comments: Your urine test, lab test, CT scan did not show an acute abnormality. There is unevenness of stool and air clumped in the lower intestine we will presume this is causing the pain and cramping. Continue usual fiber. To that add MiraLAX 1 capful (17 g) in a glass of water every 1-2 hours until having a little softer stool. You can continue it then once or twice daily for the next week and then use it as needed. Use the mineral oil suppository at home to help soften on the lower end and stimulate the intestines. Tylenol or ibuprofen as needed for pains. Recheck if not improved well over the next day or 2. Forms: Activity restrictions Discharge Date/Time: 11/01/20 17:23
[2020-11-01 14:24] LABS: BASOPHILS % (AUTO) 0.5 %; EOSINOPHILS # (AUTO) 0.1 10^3/uL (0.0-0.7); EOSINOPHILS % (AUTO) 1.9 %; HGB - HEMOGLOBIN 12.9 g/dL (12.0-16.0); LYMPHOCYTES # (AUTO) 1.7 10^3/uL (1.5-3.5); LYMPHOCYTES % (AUTO) 26.6 %; MEAN CORPUSCULAR HEMOGLOBIN 31.6 pg (27.0-31.0); MEAN CORPUSCULAR HGB CONC 33.2 g/dL (32.0-36.0); MEAN CORPUSCULAR VOLUME 95.1 fL (81.0-99.0); MEAN PLATELET VOLUME 10.4 fL (7.9-10.8); MONOCYTES # (AUTO) 0.3 10^3/uL (0.0-1.0); MONOCYTES % (AUTO) 5.4 %; NEUTROPHILS # (AUTO) 4.1 10^3/uL (1.5-6.6); NEUTROPHILS % (AUTO) 65.4 %; PLT - PLATELET COUNT 248 10^3/uL (130-450); RED BLOOD COUNT 4.08 10^6/uL (4.20-5.40); RED CELL DISTRIBUTION WIDTH 12.1 % (12.0-15.0); WHITE BLOOD COUNT 6.3 x10^3/uL (4.8-10.8)
[2020-11-01 14:42] LABS: ALBUMIN 4.7 g/dL (3.2-5.5); ALBUMIN/GLOBULIN RATIO 1.6 (1.0-2.2); BILIRUBIN,TOTAL 0.4 mg/dL (0.2-1.0); CALCIUM 9.6 mg/dL (8.5-10.3); CREATININE 0.7 mg/dL (0.4-1.0); TOTAL PROTEIN 7.6 g/dL (6.7-8.2)
[2020-11-01] MEDS ORDERED: HYDROmorphone 1 MG/ML CARPUJECT IVP STA (14:53)
[2020-11-01] MEDS ORDERED: KETOROLAC 30 MG/ML VIAL IVP STA (14:53)
[2020-11-01] MEDS ORDERED: SODIUM CHLORIDE 0.9% 1,000 ML IV STA (14:53)
[2020-11-01] MEDS ORDERED: ONDANSETRON 4 MG/2 ML VIAL IVP STA (14:53)
[2020-11-01 15:01] LABS: BILIRUBIN,URINE NEGATIVE (NEGATIVE); GLUCOSE, URINE (UA) NEGATIVE (NEGATIVE); KETONES,URINE (UA) NEGATIVE (NEGATIVE); LEUKOCYTE ESTERASE, URINE NEGATIVE (NEGATIVE); NITRITE,URINE NEGATIVE (NEGATIVE); OCCULT BLOOD,URINE MODERATE (NEGATIVE); PH,URINE 7.5 PH (5.0-7.5); PROTEIN,URINE NEGATIVE (NEGATIVE); UROBILINOGEN,URINE 0.2 (NORMAL) E.U./dL (NORMAL)
[2020-11-01 15:02] LABS: CLARITY,URINE CLEAR (CLEAR); HCG UR QUAL NEGATIVE
[2020-11-01 15:04] LABS: RBC,URINE 0-5 /HPF (0-5)
[2020-11-01 15:05] LABS: BACTERIA,URINE None Seen /HPF (None Seen); SQUAMOUS EPITHELIAL CELL,UR RARE Squamous (<= Few)
[2020-11-01] MEDS ORDERED: IOVERSOL 320 100 ML VIAL IVP ONE ×2 (15:07→15:11)
--- NOTE | 2020-11-01 15:40 | CT Report ---
PROCEDURE: Abdomen/Pelvis W INDICATIONS: Lower abd pain and distension. CONTRAST: IV CONTRAST: Optiray 320 ml: 100 PO CONTRAST: Optiray 320 ml100 TECHNIQUE: After the administration of intravenous and oral contrast, 5 mm thick sections acquired from the diap hragms to the symphysis. 5 mm thick coronal and sagittal reformats were acquired. For radiation dos e reduction, the following was used: automated exposure control, adjustment of mA and/or kV accordin g to patient size. COMPARISON: None. FINDINGS: Image quality: Excellent. ABDOMEN: Lung bases: Lung bases are clear. Heart size is normal. Solid organs: Liver and spleen are normal in size and enhancement. Gallbladder is unremarkable. Bi liary system is non dilated. Pancreas enhances normally. No adrenal nodules. Kidneys demonstrate n ormal size and enhancement, without hydronephrosis. Peritoneum and bowel: Appendix is normal. Bowel loops demonstrate normal wall thickness and caliber. No free fluid or air. Nodes and vessels: No retroperitoneal or mesenteric adenopathy by size criteria. Aorta and inferior vena cava are normal in size. Miscellaneous: No ventral hernias. PELVIS: Genitourinary: Small volume free pelvic fluid is within physiologic normal limits. IUD noted in the u terus, grossly normal in position. Small amount of fluid in the uterine cavity is presumably physiolo gic in nature. Ovaries heart normal. Miscellaneous: No inguinal hernias or adenopathy. Bones: No suspicious bony lesions. No vertebral body compression fractures. IMPRESSION: No acute finding to explain abdominal pain. IUD noted in the uterus, grossly normal in appearance by CT although ultrasound and physical examinat ion are better suited for evaluation of IUD position. Reviewed by: Steve Shoemaker MD on 11/01/2020 3:39 PM PST Approved by: Steve Shoemaker MD on 11/01/2020 3:39 PM PST Station ID: [id number]
[2020-11-01] MEDS ORDERED: DOCUSATE SODIUM 100 MG CAPSULE PO STA (15:47)
[2020-11-01] MEDS ORDERED: MAGNESIUM CITRATE 296 ML BOTTLE PO STA (15:47)
[2020-11-01] MEDS ORDERED: MINERAL OIL ENEMA 133 ML BOTTLE RC STA (15:48)
[2020-11-01 17:23] VITALS: BP 126/78
== END 2020-11-01 17:23 | disposition home or self-care (01) ==
LOC: ED 13:59
DX: K59.00 Constipation, unspecified (principal); R10.31 Right lower quadrant pain; R10.32 Left lower quadrant pain
CPT/HCPCS: 36415; 74177; 80053; 81001; 81025; 83690; 85025; 96374; 99284; A9270; J1170; Q9967; 81003; 87086

== ENCOUNTER 2021-08-28 00:29 | Emergency (ER) | payer OTHER ==
[2021-08-28] MEDS ORDERED: CHERRY SYRUP 10 ML UDC PO ONE (02:02)
[2021-08-28] MEDS ORDERED: DEXAMETHASONE 10 MG/ML VIAL PO STA (02:02)
--- NOTE | 2021-08-28 02:12 | ED Physician Documentation ---
PD HPI HEENT - Stated complaint Stated Complaint: COUGH/R SIDE FACE PX - Chief complaint Chief Complaint: Heent - History obtained from History obtained from: Patient - History of Present Illness Timing - onset: How many weeks ago (1) Timing - duration: Weeks (1) Timing - details: Gradual onset, Still present Location: Sinuses Improves: Medication Worsens: Swalllowing Associated symptoms: Congestion, Rhinorrhea, Cough, Other (right sided facial pain) Similar symptoms before: Diagnosis (sinusitis) Recently seen: Not recently seen - Additional information Additional information: 41-year-old female with a history of chronic sinusitis and otitis has developed a cough and congestion. She is on decongestants and has had some intermittent drainage and now has developed some facial pain on the right side and especially severe pain with coughing. 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 She has had pressure equalization tubes placed into both ears twice in the past 2 years which helped a lot with the frequent infections she has sustained. She does see an ear nose and throat doctor in [place]. Review of Systems Constitutional: denies: Fever Eyes: denies: Loss of vision, Decreased vision, Photophobia Ears: reports: Loss of hearing. denies: Ear pain, Drainage/discharge Nose: reports: Rhinorrhea / runny nose, Congestion, Sinus pressure / pain Throat: reports: Other (lost voice). denies: Sore throat Cardiac: denies: Chest pain / pressure, Palpitations Respiratory: reports: Cough. 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 - Past Surgical History Past Surgical History: Yes HEENT: Tonsil/Adenoidectomy - Present Medications Home Medications: Ambulatory Orders Medication Instructions Recorded Confirmed Biotin 2 cap DAILY 12/12/19 11/01/20 Eszopiclone [Lunesta] 0.5 tab DAILY 12/12/19 12/12/19 Mecobalamin [B12 Active] 1 tab DAILY 12/12/19 11/01/20 Nortriptyline HCl 50 mg DAILY 12/12/19 11/01/20 Ibuprofen [Motrin] 600 mg PO TID PRN #25 tab 11/01/20 Levothyroxine Sodium [Synthroid] 224 mcg PO DAILY 11/01/20 11/01/20 polyethylene glycoL 3350 [Miralax] 17 gm PO DAILY PRN #1 bottle 11/01/20 Amox/Clav 875/125 [Augmentin] 1 each PO Q12H #20 tablet 08/28/21 Benzocaine/Menthol [Sore Throat 1 lozenge PO DAILY 08/28/21 08/28/21 15-2.6 mg Lozenge] Pseudoephedrine [Sudafed] 30 mg PO DAILY 08/28/21 08/28/21 guaiFENesin [Mucus Relief ER] 600 mg PO BID 08/28/21 08/28/21 - Allergies Allergies/Adverse Reactions: Allergies Allergy/AdvReac Type Severity Reaction Status Date / Time No Known Drug Allergies Allergy Verified 08/28/21 00:51 - Social History Does the pt smoke?: No Smoking Status: Never smoker Does the pt drink ETOH?: No Does the pt have substance abuse?: No - Immunizations Immunizations are current?: Yes - POLST Patient has POLST: No PD ED PE NORMAL - Vitals Vital signs reviewed: Yes (hypertensive ) - General General: Alert and oriented X 3, No acute distress, Well developed/nourished - HEENT HEENT: Atraumatic, PERRL, EOMI, Other (both TM's have PE tubes in place with open orifice, no drainage and only minimal inflamation in the attic on the left. mild point tenderness to the right maxillary sinus. 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 Mild maxillary sinus disease without evidence of fluid levels.), EMP read indepedently, See rad report PD MEDICAL DECISION MAKING - ED course Complexity details: reviewed old records, reviewed results, re-evaluated patient, considered differential, d/w patient ED course: 41-year-old female with a history of frequent sinus and ear infections has developed infection over the past week with a cough that is particularly painful around the right eye. She has maxillary sinus point tenderness and minimal sinus disease on CT. The patient is symptomatic has prior experience with infection and she is a bit concerned that may be this issue with her pituitary macroadenoma may cause some of this issue with pain in her periorbital tissues on the right side. For this reason a screening CT of the sinus was obtained and shows minimal disease. She is treated here in the emergency department with dexamethasone and we will place her on a course of Augmentin. Departure - Departure Disposition: 01 Home, Self Care Clinical Impression: Sinusitis Qualifiers: Sinusitis location: maxillary Chronicity: acute Recurrence: recurrent Qualified Code(s): J01.01 - Acute recurrent maxillary sinusitis Condition: Stable Instructions: ED Sinusitis Abx Tx Follow-Up: [facility] [Provider Group] Prescriptions: Amox/Clav 875/125 [Augmentin] 1 each PO Q12H #20 tablet
[2021-08-28 03:28] VITALS: BP 139/82
[2021-08-28] MEDS ORDERED: AMOX/CLAV 875 MG/125 MG TABLET PO STA (03:28)
--- NOTE | 2021-08-28 09:14 | CT Report ---
PROCEDURE: Sinuses INDICATIONS: right facial pain TECHNIQUE: Noncontrast 3.0 mm axial images acquired from the frontal sinuses to the mid-sella, with coronal and sagittal reformats. For radiation dose reduction, the following was used: automated exposure control , adjustment of mA and/or kV according to patient size. COMPARISON: None. FINDINGS: Image quality: Excellent. Sinuses: There is minimal pansinus mucosal thickening. Small mucous retention cyst versus polyp is p resent in both the left and right maxillary sinuses. No fluid levels are identified. Ostiomeatal Complexes: Ostiomeatal complexes are patent. No Yoanna cells. Miscellaneous: Visualized intra-orbital contents are normal. No dawna bullosa. No nasal septal de viation. IMPRESSION: Minimal pansinus mucosal thickening most prominent in the maxillary sinuses without fluid levels. The above findings are concordant with preliminary report. Reviewed by: Malinda Moody MD on 08/28/2021 9:13 AM PST Approved by: Malinda Moody MD on 08/28/2021 9:13 AM PST Station ID: [id number]
== END 2021-08-28 03:33 | disposition home or self-care (01) ==
LOC: ED 00:29
DX: J01.01 Acute recurrent maxillary sinusitis (principal); D35.2 Benign neoplasm of pituitary gland
CPT/HCPCS: 70486; 99284; A9270

== ENCOUNTER 2022-01-13 21:32 | Emergency (ER) | payer OTHER ==
[2022-01-13 21:40] VITALS: BP 150/80
--- NOTE | 2022-01-13 21:41 | ED Physician Documentation ---
PD HPI HEADACHE - Stated complaint Stated Complaint: HEAD PX - Chief complaint Chief Complaint: General - History obtained from History obtained from: Patient - History of Present Illness Timing - onset: How many days ago (2) Timing - details: Gradual onset Worst headache ever?: No: Worst headache ever? Location: Front Quality: Aching Associated symptoms: No: Fever, Nausea, Vomiting Similar symptoms before: Diagnosis (sinusitis) Recently seen: Clinic - Additional information Additional information: c/o cough x 2 days, productive of green/yellow sputum, and frontal headache/facial pain in areas of bilateral frontal and maxillary sinuses. She c/o sinus congestion. She denies fever. She is COVID vaccinated with booster. She was evaluated at [facility], no rx provided. She says her symptoms have progressed since being evaluated, particularly the sinus congestion and pain. The pain is exacerbated with coughing Review of Systems Constitutional: denies: Fever, Chills, Sweats Ears: denies: Ear pain Nose: reports: Congestion, Sinus pressure / pain Throat: denies: Sore throat Respiratory: reports: Cough. 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 - Past Surgical History Past Surgical History: Yes HEENT: Tonsil/Adenoidectomy - Present Medications Home Medications: Ambulatory Orders Medication Instructions Recorded Confirmed Biotin 2 cap DAILY 12/12/19 11/01/20 Eszopiclone [Lunesta] 0.5 tab DAILY 12/12/19 12/12/19 Mecobalamin [B12 Active] 1 tab DAILY 12/12/19 11/01/20 Nortriptyline HCl 50 mg DAILY 12/12/19 11/01/20 Ibuprofen [Motrin] 600 mg PO TID PRN #25 tab 11/01/20 Levothyroxine Sodium [Synthroid] 224 mcg PO DAILY 11/01/20 11/01/20 polyethylene glycoL 3350 [Miralax] 17 gm PO DAILY PRN #1 bottle 11/01/20 Amox/Clav 875/125 [Augmentin] 1 each PO Q12H #20 tablet 08/28/21 Benzocaine/Menthol [Sore Throat 1 lozenge PO DAILY 08/28/21 08/28/21 15-2.6 mg Lozenge] Pseudoephedrine [Sudafed] 30 mg PO DAILY 08/28/21 08/28/21 guaiFENesin [Mucus Relief ER] 600 mg PO BID 08/28/21 08/28/21 Amox/Clav 875/125 [Augmentin 1 tablet PO Q12H 10 Days #20 tablet 01/13/22 875/125 Tab] - Allergies Allergies/Adverse Reactions: Allergies Allergy/AdvReac Type Severity Reaction Status Date / Time No Known Drug Allergies Allergy Verified 01/13/22 21:38 - Social History Does the pt smoke?: No Smoking Status: Never smoker Does the pt drink ETOH?: No Does the pt have substance abuse?: No - Immunizations Immunizations are current?: Yes - POLST Patient has POLST: No PD ED PE NORMAL - Vitals Vital signs reviewed: Yes - General General: Alert and oriented X 3, No acute distress, Well developed/nourished - HEENT HEENT: Pharynx benign - Neck Neck: Supple, no meningeal sign - Respiratory Respiratory: No respiratory distress, Clear bilaterally PD ED PE EXPANDED - HEENT HEENT: Right frontal sinus TTP, Left frontal sinus TTP, Right maxillary sinus TTP, Left maxillary sinus TTP Results - Vitals Vitals: Vital Signs - 24 hr 01/13/22 01/13/22 21:38 21:58 Temperature 36.5 C Heart Rate 100 Respiratory 16 20 Rate Blood Pressure 150/80 H O2 Saturation 100 Oxygen O2 Source Room air PD MEDICAL DECISION MAKING - ED course Complexity details: considered differential, d/w patient ED course: presents with steadily worsening bilateral frontal/maxillary sinus congestion and pain. She also describes productive cough. Lungs CTA bilaterally, no respiratory distress and thus imaging not indicated at this time. She is TTP over bilateral frontal and maxillary sinuses. She says she has had recurrent sinusitis and that when it is this symptomatic, she responds well to an antibiotic. Given augmentin in ED and rx for same transmitted to pharmacy of her choice Departure - Departure Disposition: 01 Home, Self Care Clinical Impression: Sinusitis Condition: Good Instructions: ED Sinusitis Abx Tx Follow-Up: [facility] [Provider Group] Prescriptions: Amox/Clav 875/125 [Augmentin 875/125 Tab] 1 tablet PO Q12H 10 Days #20 tablet Comments: A prescription for augmentin (antibiotic) has been electronically submitted to [facility] in [place]. Discharge Date/Time: 01/13/22 22:06
[2022-01-13] MEDS ORDERED: AMOX/CLAV 875 MG/125 MG TABLET PO STA (22:01)
--- OUTSIDE RECORDS SUMMARY | 2022-01-13 22:04 | EXTERNAL MEDICAL SUMMARY RPT | Continuity of Care Document ---
:1980 Author Organization [facility] Address [address] [place] [address] Phone Care Team Providers Name Role Phone Marielena Oc Unavailable Unavailable Allergies No information. Encounters No information. Medications date description facility 20220110 Eszopiclone 1 MG Oral Tablet [facility] 20220108 modafinil 100 MG Oral Tablet [facility] [id number] Eszopiclone 1 MG Oral Tablet [facility] Problems date description facility [id number] [facility] gidd[facility] Procedures date description facility 20220110 [facility] [id number] [facility] [id number] Diagnosis Located Within [facility] 20211023 [facility] Results No information. Vital Signs date measurement value source 20220110 weight_standard 86.18 lb 20220110 weight_metric 39.09 kg 20220110 temperature_standard 97.5 F 20220110 temperature_metric 36.39 C 20220110 respiration_rate 20 /min 20220110 height_standard 67 in 20220110 height_metric 170.18 cm 20220110 heart_rate 108 /min 20220110 BP_systolic 137 mm[Hg] 20220110 BP_diastolic 92 mm[Hg] 20220110 BMI 29.7 kg/m2
== END 2022-01-13 22:06 | disposition home or self-care (01) ==
LOC: ED 21:32
DX: J32.9 Chronic sinusitis, unspecified (principal)
CPT/HCPCS: 99282; A9270

== ENCOUNTER 2022-08-19 01:39 | Emergency (ER) | payer OTHER ==
[2022-08-19 02:33] LABS: BASOPHILS % (AUTO) 0.6 %; EOSINOPHILS # (AUTO) 0.4 10^3/uL (0.0-0.7); EOSINOPHILS % (AUTO) 7.2 %; HCT - HEMATOCRIT 38.8 % (37.0-47.0); HGB - HEMOGLOBIN 12.8 g/dL (12.0-16.0); LYMPHOCYTES # (AUTO) 1.8 10^3/uL (1.5-3.5); LYMPHOCYTES % (AUTO) 33.8 %; MEAN CORPUSCULAR HEMOGLOBIN 31.1 pg (27.0-31.0); MEAN CORPUSCULAR VOLUME 94.4 fL (81.0-99.0); MEAN PLATELET VOLUME 10.2 fL (7.9-10.8); MONOCYTES # (AUTO) 0.3 10^3/uL (0.0-1.0); NEUTROPHILS # (AUTO) 2.7 10^3/uL (1.5-6.6); NEUTROPHILS % (AUTO) 52.2 %; PLT - PLATELET COUNT 203 10^3/uL (130-450); RED BLOOD COUNT 4.11 10^6/uL (4.20-5.40); RED CELL DISTRIBUTION WIDTH 12.5 % (12.0-15.0); WHITE BLOOD COUNT 5.2 x10^3/uL (4.8-10.8)
[2022-08-19] MEDS ORDERED: iohexoL-300 100 ML VIAL ONE (02:34)
[2022-08-19 02:41] LABS: CALCIUM 9.2 mg/dL (8.5-10.3); CREATININE 0.6 mg/dL (0.4-1.0); POTASSIUM 3.8 mmol/L (3.5-5.0)
--- NOTE | 2022-08-19 02:43 | ED Physician Documentation ---
PD HPI HEENT - Stated complaint Stated Complaint: swollen lymph node - Chief complaint Chief Complaint: Heent - History obtained from History obtained from: Patient - Additional information Additional information: Patient is a 42-year-old female presenting for evaluation of right-sided neck swelling that she noticed at 1:00 this morning. Patient went to bed feeling okay but noticed at 1:00 when she woke up that she had significant swelling and tenderness to her right neck. She reports that has gone down in size since that she woke up. She spoke to the nurse advice line for the [place] who instructed her to come to the emergency department for evaluation. She recently has had a URI with postnasal drainage and cough for the past week.She denies difficulty swallowing and her speech is normal for her. Review of Systems Constitutional: denies: Fever Nose: reports: Congestion Throat: reports: Sore throat Cardiac: denies: Chest pain / pressure Respiratory: reports: Cough. denies: Dyspnea GI: denies: Abdominal Pain Musculoskeletal: denies: Back pain Neurologic: denies: Headache PD PAST MEDICAL HISTORY - Past Medical History Past Medical History: Yes Respiratory: Asthma, Sleep apnea Neuro: Migraines Endocrine/Autoimmune: HyPOthyroidism GI: Other LANGUAGE PATHOLOGIST: None Psych: Anxiety - Past Surgical History Past Surgical History: Yes HEENT: Tonsil/Adenoidectomy - Present Medications Home Medications: Ambulatory Orders Medication Instructions Recorded Confirmed Eszopiclone [Lunesta] 0.5 tab PO DAILY 12/12/19 08/19/22 Nortriptyline HCl 50 mg PO DAILY 12/12/19 08/19/22 Levothyroxine Sodium [Synthroid] 224 mcg PO DAILY 11/01/20 08/19/22 Amox/Clav 875/125 [Augmentin] 1 each PO Q12H #14 tablet 08/19/22 FLUoxetine [PROzac] 10 mg PO DAILY 08/19/22 08/19/22 modafiniL [Modafinil] 33 mg PO DAILY 08/19/22 08/19/22 - Allergies Allergies/Adverse Reactions: Allergies Allergy/AdvReac Type Severity Reaction Status Date / Time No Known Drug Allergies Allergy Verified 08/19/22 02:00 - Social History Does the pt smoke?: No Smoking Status: Never smoker Does the pt drink ETOH?: No Does the pt have substance abuse?: No - Immunizations Immunizations are current?: Yes - POLST Patient has POLST: No PD ED PE NORMAL - General General: Alert and oriented X 3, No acute distress, Well developed/nourished - HEENT HEENT: Atraumatic, Moist mucous membranes, Pharynx benign, Other (No oral swelling, phonation is normal,Right submandibular swelling) - Cardiac Cardiac: RRR, Strong equal pulses - Respiratory Respiratory: No respiratory distress, Clear bilaterally - Abdomen Abdomen: Soft, Non tender - Derm Derm: Warm and dry - Neuro Neuro: Normal speech Results - Vitals Vitals: Vital Signs - 24 hr 08/19/22 08/19/22 01:55 04:40 Temperature 36.8 C 36.6 C Heart Rate 94 89 Respiratory 18 16 Rate Blood Pressure 131/71 H 127/80 O2 Saturation 97 99 Oxygen O2 Source Room air - Labs Labs: Laboratory Tests 08/19/22 08/19/22 08/19/22 02:27 02:27 02:27 WBC 5.2 RBC 4.11 L Hgb 12.8 Hct 38.8 MCV 94.4 MCH 31.1 H MCHC 33.0 RDW 12.5 Plt Count 203 MPV 10.2 Neut # (Auto) 2.7 Lymph # (Auto) 1.8 Miller # (Auto) 0.3 Eos # (Auto) 0.4 Baso # (Auto) 0.0 Absolute Nucleated RBC 0.00 Nucleated RBC % 0.0 Sodium 138 Potassium 3.8 Chloride 104 Carbon Dioxide 25 Anion Gap 9.0 BUN 11 Creatinine 0.6 Estimated GFR (MDRD) 111 Glucose 105 H Calcium 9.2 Group A Strep Rapid Negative PD MEDICAL DECISION MAKING - ED course Complexity details: reviewed results, re-evaluated patient, d/w patient ED course: Patient presenting for evaluation of right-sided neck swelling. Reports that the swelling has significantly decreased since it started at this morning.Her vital signs are stable and she has no signs of airway compromise.Strep test is negative. CT scan and labs were obtained. CT scan demonstrates right submandibular sialoadenitis with no duct stone or obstruction appreciated.Patient symptoms do appear to be improving while here.Unclear etiology as symptoms started abruptly in the middle of the night. Will start on Augmentin and instructed patient on need for close follow-up as well as concerning symptoms to return for. Departure - Departure Disposition: 01 Home, Self Care Clinical Impression: Sialoadenitis of submandibular gland Condition: Stable Instructions: ED Sublingual Gland Swelling [facility] Prescriptions: Amox/Clav 875/125 [Augmentin] 1 each PO Q12H #14 tablet Comments: You have a swollen submandibular gland which is one of your salivary glands. It does appear that the swelling has significantly decreased since it first started. I am going to start you on an antibiotic for the inflammation I have sent this prescription to [facility] in [place]. Please continue with hydration And using anti-inflammatories such as ibuprofen As well as warm compresses and massage to the area. I would also recommend Using agents that stimulate saliva production such as chewing gum or lemon/sour candies. If you notice any worsening symptoms please consider return to the emergency department. Discharge Date/Time: 08/19/22 05:16
[2022-08-19 02:56] LABS: RAPID STREP SCREEN Negative (Negative)
[2022-08-19] MEDS ORDERED: iohexoL-300 100 ML VIAL IVP ONE (03:17)
[2022-08-19 04:49] VITALS: BP 127/80
[2022-08-19] MEDS ORDERED: AMOX/CLAV 875 MG/125 MG TABLET PO STA (04:56)
--- OUTSIDE RECORDS SUMMARY | 2022-08-19 05:25 | EXTERNAL MEDICAL SUMMARY RPT | Continuity of Care Document ---
:1980 Author Organization [facility] Address [address] [place] [address] Phone Care Team Providers Name Role Phone Oc Peguero Unavailable Unavailable Allergies No information. Encounters No information. Functional Status No information. Immunizations No information. Medications date description facility [id number] [facility] Problems No information. Procedures No information. Results/Labs test date author facility value unit interpret ation Result panel 1 (unknown) (no (unknown) (unknown) (no value) (units (unk nown) date) unknown) (unknown) (no (unknown) (unknown) 06/20/22 (units (unkno wn) date) unknown) (unknown) (no (unknown) (unknown) [id number] (units (unkno wn) date) unknown) (unknown) (no (unknown) (unknown) Age/Sex: 41 / F (units (unknown) date) Date of Service: unknown) (unknown) (no (unknown) (unknown) Allergies (units (unkn own) date) unknown) (unknown) (no (unknown) (unknown) [place], [place] (units ( unknown) date) [id number] unknown) (unknown) (no (unknown) (unknown) Anxiety (units (unkno wn) date) unknown) (unknown) (no (unknown) (unknown) Attending Dr: (units ( unknown) date) Astrid Carrion unknown) DIRECTOR OF NURSES REGISTRY (unknown) (no (unknown) (unknown) Bipolar disorder (units (unknown) date) unknown) (unknown) (no (unknown) (unknown) : 1980 (units (unknown) date) Acct:[id number] unknown) (unknown) (no (unknown) (unknown) Depression (units (unk nown) date) unknown) (unknown) (no (unknown) (unknown) Dept at (units (unkno wn) date) . unknown) (unknown) (no (unknown) (unknown) Documented By: (units (unknown) date) Astrid Carrion unknown) [facility] 06/20/22 1453 (unknown) (no (unknown) (unknown) Draft (units (unkno wn) date) unknown) (unknown) (no (unknown) (unknown) Family History (units (unknown) date) (Reviewed unknown) 01/10/22 @ 14:58 by J Luis Tirado MD) (unknown) (no (unknown) (unknown) Family/Other CAD (units (unknown) date) (coronary artery unknown) disease) (unknown) (no (unknown) (unknown) Father (units (unkno wn) date) Hypertension unknown) (unknown) (no (unknown) (unknown) Grandfather (units (un known) date) Dementia unknown) (unknown) (no (unknown) (unknown) Hypothyroidism (units (unknown) date) unknown) (unknown) (no (unknown) (unknown) Idiopathic (units (unk nown) date) hypersomnia unknown) (unknown) (no (unknown) (unknown) Insomnia (units (unkno wn) date) unknown) (unknown) (no (unknown) (unknown) Intake (units (unkno wn) date) unknown) (unknown) (no (unknown) (unknown) Loc: SLEEP (units (unk nown) date) unknown) (unknown) (no (unknown) (unknown) Medical History (units (unknown) date) (Reviewed unknown) 01/10/22 @ 14:58 by J Luis Tirado MD) (unknown) (no (unknown) (unknown) Mother Alcohol (units (unknown) date) abuse unknown) (unknown) (no (unknown) (unknown) No Known Drug (units ( unknown) date) Allergies Allergy unknown) (Verified 07/11/21 09:44) (unknown) (no (unknown) (unknown) Obesity (units (unkno wn) date) unknown) (unknown) (no (unknown) (unknown) PFSH (units (unkno wn) date) unknown) (unknown) (no (unknown) (unknown) Patient: (units (unkno wn) date) John Olguin unknown) MR#: [id number] (unknown) (no (unknown) (unknown) Primary insomnia (units (unknown) date) unknown) (unknown) (no (unknown) (unknown) Reason For Visit (units (unknown) date) unknown) (unknown) (no (unknown) (unknown) Signed By: (units (unk nown) date) unknown) (unknown) (no (unknown) (unknown) Sleep Visit (units (un known) date) unknown) (unknown) (no (unknown) (unknown) [facility] ([facility] unknown) (unknown) (no (unknown) (unknown) Smoking Status: (units (unknown) date) Never smoker unknown) (unknown) (no (unknown) (unknown) This note may (units ( unknown) date) have been all or unknown) partially generated using voice recognition (unknown) (no (unknown) (unknown) Tobacco + (units (unkn own) date) Substance Use unknown) (unknown) (no (unknown) (unknown) Tobacco Status (units (unknown) date) unknown) (unknown) (no (unknown) (unknown) Visit Reasons: (units (unknown) date) 6m-meds-pt moving unknown) soon (unknown) (no (unknown) (unknown) have occurred. (units (unknown) date) If there are any unknown) questions, please contact the Medical Records (unknown) (no (unknown) (unknown) may occur. (units (unk nown) date) Occasional unknown) wrong-word or 'sound-alike' substitutions may have (unknown) (no (unknown) (unknown) occurred due to (units (unknown) date) the inherent unknown) limitations of voice recognition software. Please (unknown) (no (unknown) (unknown) read the note (units ( unknown) date) carefully and unknown) recognize, using context, where these substitutions (unknown) (no (unknown) (unknown) software. (units (unkn own) date) Although every unknown) effort is made to edit content, loading inspector errors Result panel 2 (unknown) (no (unknown) (unknown) (no value) (units (unk nown) date) unknown) (unknown) (no (unknown) (unknown) (1) Insomnia: (units ( unknown) date) unknown) (unknown) (no (unknown) (unknown) (2) Idiopathic (units (unknown) date) hypersomnia: unknown) (unknown) (no (unknown) (unknown) * Eszopiclone; (units (unknown) date) effective at 0.5 unknown) mg (unknown) (no (unknown) (unknown) * Zaleplon (units (unk nown) date) unknown) (unknown) (no (unknown) (unknown) * Zolpoidem; (units (u nknown) date) ineffective unknown) (unknown) (no (unknown) (unknown) 0 = Would never (units (unknown) date) doze or sleep, 1 unknown) = Slight chance of dozing or sleeping, 2 = (unknown) (no (unknown) (unknown) 06/20/22 (units (unkno wn) date) unknown) (unknown) (no (unknown) (unknown) 100mg daily. She (units (unknown) date) found this was unknown) 'too much' and has settled on 25 mg in the (unknown) (no (unknown) (unknown) [id number] (units (unkno wn) date) unknown) (unknown) (no (unknown) (unknown) Adhere to (units (unkn own) date) regular mealtime unknown) schedule, avoid snacking (unknown) (no (unknown) (unknown) Affect: normal (units (unknown) date) affect unknown) (unknown) (no (unknown) (unknown) Age/Sex: 41 / F (units (unknown) date) Date of Service: unknown) (unknown) (no (unknown) (unknown) Allergies (units (unkn own) date) unknown) (unknown) (no (unknown) (unknown) [place], [place] (units ( unknown) date) [id number] unknown) (unknown) (no (unknown) (unknown) Anxiety (units (unkno wn) date) unknown) (unknown) (no (unknown) (unknown) Assessment + (units (u nknown) date) Plan unknown) (unknown) (no (unknown) (unknown) Assessment and (units (unknown) date) Plan: unknown) (unknown) (no (unknown) (unknown) Associate your (units ( unknown) date) bed with sleep. unknown) It's not a good idea to use your bed to watch TV, (unknown) (no (unknown) (unknown) Attending Dr: (units ( unknown) date) Astrid Carrion unknown) DIRECTOR OF NURSES REGISTRY (unknown) (no (unknown) (unknown) Avoid alcohol (units ( unknown) date) after 4 pm unknown) (unknown) (no (unknown) (unknown) Avoid (units (unkno wn) date) medications which unknown) may interfere with sleep (unknown) (no (unknown) (unknown) Avoid random (units (u nknown) date) napping during unknown) the day; it can disturb the normal pattern of sleep (unknown) (no (unknown) (unknown) Avoid stimulants (units (unknown) date) such as caffeine, unknown) nicotine, and alcohol too close to bedtime. (unknown) (no (unknown) (unknown) Being a (units (unkno wn) date) passenger in a unknown) motor vehicle for an hour or so: 0 = Never (None) (unknown) (no (unknown) (unknown) Bipolar disorder (units (unknown) date) unknown) (unknown) (no (unknown) (unknown) Chief Complaint: (units (unknown) date) Patient is here unknown) to follow up on therapy for idiopathic (unknown) (no (unknown) (unknown) Clinical Course (units (unknown) date) unknown) (unknown) (no (unknown) (unknown) Cognition: (units (unk nown) date) normal cognition unknown) (unknown) (no (unknown) (unknown) Condition is (units (u nknown) date) Onset: currently unknown) stable and Chronic and ongoing condition (unknown) (no (unknown) (unknown) Confirmed (units (unkn own) date) 06/20/22] unknown) (unknown) (no (unknown) (unknown) Conjunctivae: (units ( unknown) date) conjunctivae unknown) normal (unknown) (no (unknown) (unknown) Consider weaning (units (unknown) date) caffeine use, unknown) starting with no caffeine after 3pm (unknown) (no (unknown) (unknown) Const (units (unkno wn) date) unknown) (unknown) (no (unknown) (unknown) Continue on (units (un known) date) Modafinil 1/4 tab unknown) of 100 mg tab (unknown) (no (unknown) (unknown) Currently she (units ( unknown) date) reports symptoms unknown) of trouble falling asleep at times, trouble (unknown) (no (unknown) (unknown) : 1980 (units (unknown) date) Acct:[id number] unknown) (unknown) (no (unknown) (unknown) Depression (units (unk nown) date) unknown) (unknown) (no (unknown) (unknown) Dept at (units (unkno wn) date) . unknown) (unknown) (no (unknown) (unknown) Details: (units (unkno wn) date) unknown) (unknown) (no (unknown) (unknown) Documented By: (units (unknown) date) Astrid Carrion unknown) [facility] 06/20/22 1453 (unknown) (no (unknown) (unknown) Draft (units (unkno wn) date) unknown) (unknown) (no (unknown) (unknown) Drowsy driving (units (unknown) date) handout made unknown) available. (unknown) (no (unknown) (unknown) Ears: hearing (units ( unknown) date) grossly normal unknown) bilaterally (unknown) (no (unknown) (unknown) Effort + (units (unkno wn) date) Inspection: unknown) normal respiratory effort, able to speak in complete (unknown) (no (unknown) (unknown) Ensure adequate (units (unknown) date) exposure to unknown) natural light. This is particularly important for (unknown) (no (unknown) (unknown) [place] Score: 5 (units (unknown) date) unknown) (unknown) (no (unknown) (unknown) [place] (units (unkno wn) date) Sleepiness Scale unknown) score of 01/21. Risks and symptoms of drowsiness were (unknown) (no (unknown) (unknown) [place] (units (unkno wn) date) Sleepiness Scale unknown) (unknown) (no (unknown) (unknown) Establish a (units (unk nown) date) regular relaxing unknown) bedtime routine. Try to avoid emotionally upsetting (unknown) (no (unknown) (unknown) Exam (units (unkno wn) date) unknown) (unknown) (no (unknown) (unknown) Eyes (units (unkno wn) date) unknown) (unknown) (no (unknown) (unknown) Family History (units (unknown) date) (Reviewed unknown) 01/10/22 @ 14:58 by J Luis Tirado MD) (unknown) (no (unknown) (unknown) Family/Other CAD (units (unknown) date) (coronary artery unknown) disease) (unknown) (no (unknown) (unknown) Father (units (unkno wn) date) Hypertension unknown) (unknown) (no (unknown) (unknown) Food can be (units (un known) date) disruptive right unknown) before sleep; stay away from large meals close to (unknown) (no (unknown) (unknown) General: (units (unkno wn) date) cooperative, unknown) comfortable (casually groomed) and no acute distress (unknown) (no (unknown) (unknown) General: patient (units (unknown) date) alert and patient unknown) oriented x3 (unknown) (no (unknown) (unknown) Get regular (units (un known) date) moderate exercise unknown) (30 minutes, 3x/week) (unknown) (no (unknown) (unknown) Grandfather (units (un known) date) Dementia unknown) (unknown) (no (unknown) (unknown) HENMT (units (unkno wn) date) unknown) (unknown) (no (unknown) (unknown) HPI Sleep Follow (units (unknown) date) Up unknown) (unknown) (no (unknown) (unknown) HPI (units (unkno wn) date) unknown) (unknown) (no (unknown) (unknown) Head: normal to (units (unknown) date) inspection unknown) (unknown) (no (unknown) (unknown) Hypersomnia (units (un known) date) Treatment unknown) Response/Side Effects: adherent to current narcolepsy (unknown) (no (unknown) (unknown) Hypersomnia (units (un known) date) unknown) (unknown) (no (unknown) (unknown) Hypnotics are (units ( unknown) date) being employed at unknown) a very low dose to help normalize her sleep (unknown) (no (unknown) (unknown) Hypothyroidism (units (unknown) date) unknown) (unknown) (no (unknown) (unknown) Idiopathic (units (unk nown) date) hypersomnia unknown) (unknown) (no (unknown) (unknown) Initially (units (unkn own) date) presented to [facility] unknown) in 2008 with a complaint of snoring and daytime (unknown) (no (unknown) (unknown) Insomnia (units (unkno wn) date) unknown) (unknown) (no (unknown) (unknown) Intake (units (unkno wn) date) unknown) (unknown) (no (unknown) (unknown) Light exposure (units (unknown) date) during the day unknown) helps maintain a healthy sleep-wake cycle. In (unknown) (no (unknown) (unknown) Loc: SLEEP (units (unk nown) date) unknown) (unknown) (no (unknown) (unknown) Lunesta 1 mg (units (u nknown) date) tab, 1 tab at unknown) bedtime (unknown) (no (unknown) (unknown) Lying down in (units ( unknown) date) the afternoon: 3 unknown) = High (unknown) (no (unknown) (unknown) Make sure that (units ( unknown) date) the sleep unknown) environment is pleasant and relaxing. The bed should be (unknown) (no (unknown) (unknown) Medical History (units (unknown) date) (Reviewed unknown) 01/10/22 @ 14:58 by J Luis Tirado MD) (unknown) (no (unknown) (unknown) Medication (units (unk nown) date) review over the unknown) years: (unknown) (no (unknown) (unknown) Medications (units (un known) date) unknown) (unknown) (no (unknown) (unknown) Methylphenidate; (units (unknown) date) helpful; unknown) discontinued because couldn't take amphetamine (unknown) (no (unknown) (unknown) Modafinil; more (units (unknown) date) helpful at very unknown) low doses then recommended (unknown) (no (unknown) (unknown) Moderate chance (units (unknown) date) of dozing or unknown) sleeping, 3 = High chance of dozing or sleeping (unknown) (no (unknown) (unknown) Mood: congruent (units (unknown) date) mood unknown) (unknown) (no (unknown) (unknown) Mother Alcohol (units (unknown) date) abuse unknown) (unknown) (no (unknown) (unknown) Neuro (units (unkno wn) date) unknown) (unknown) (no (unknown) (unknown) No Known Drug (units ( unknown) date) Allergies Allergy unknown) (Verified 06/20/22 14:53) (unknown) (no (unknown) (unknown) Nutritional (units (un known) date) Appearance: unknown) overweight (unknown) (no (unknown) (unknown) ONCE 06/20/22 (units ( unknown) date) [History unknown) Confirmed 06/20/22] (unknown) (no (unknown) (unknown) Obesity (units (unkno wn) date) unknown) (unknown) (no (unknown) (unknown) PFSH (units (unkno wn) date) unknown) (unknown) (no (unknown) (unknown) Pain scale (units (unk nown) date) (1-10): 0 unknown) (unknown) (no (unknown) (unknown) Pain (units (unkno wn) date) unknown) (unknown) (no (unknown) (unknown) Patient (units (unkno wn) date) instructed to use unknown) scheduled naps as needed for drowsiness safety (unknown) (no (unknown) (unknown) Patient reports (units (unknown) date) difficulty unknown) falling asleep is denied, difficulty staying asleep (unknown) (no (unknown) (unknown) Patient reports (units (unknown) date) symptoms of unknown) chronic insomnia for more than 3 months as evidenced (unknown) (no (unknown) (unknown) Patient was (units (un known) date) instructed to unknown) avoid driving or operating heavy machinery when (unknown) (no (unknown) (unknown) Patient: (units (unkno wn) date) John Olguin R unknown) MR#: [id number] (unknown) (no (unknown) (unknown) Pertinent (units (unkn own) date) Positives/Negativ unknown) es (unknown) (no (unknown) (unknown) Plan (units (unkno wn) date) unknown) (unknown) (no (unknown) (unknown) Primary insomnia (units (unknown) date) unknown) (unknown) (no (unknown) (unknown) Properly timed (units (unknown) date) exercise can unknown) promote good sleep. Vigorous exercise should be (unknown) (no (unknown) (unknown) Psych (units (unkno wn) date) unknown) (unknown) (no (unknown) (unknown) Questionnaires (units (unknown) date) unknown) (unknown) (no (unknown) (unknown) Reason For Visit (units (unknown) date) unknown) (unknown) (no (unknown) (unknown) Resp (units (unkno wn) date) unknown) (unknown) (no (unknown) (unknown) Sclera: sclerae (units (unknown) date) normal unknown) (unknown) (no (unknown) (unknown) She is currently (units (unknown) date) doing well on 0.5 unknown) mg nightly, unless she goes to bed late in (unknown) (no (unknown) (unknown) She taking 25 mg (units (unknown) date) of the Nuvigil in unknown) the morning and it keeps her alert during (unknown) (no (unknown) (unknown) Signed By: (units (unk nown) date) unknown) (unknown) (no (unknown) (unknown) Sitting and (units (un known) date) Readin = unknown) Never (None) (unknown) (no (unknown) (unknown) Sitting and (units (un known) date) talking to unknown) someone: 0 = Never (None) (unknown) (no (unknown) (unknown) Sitting inactive (units (unknown) date) in a public unknown) place: 1 = Slight (unknown) (no (unknown) (unknown) Sitting quietly (units (unknown) date) after lunch (no unknown) alcohol): 1 = Slight (unknown) (no (unknown) (unknown) Sleep Visit (units (un known) date) unknown) (unknown) (no (unknown) (unknown) [facility] ([facility] ([facility] Center unknown) (unknown) (no (unknown) (unknown) Sleep hygiene (units ( unknown) date) and sleep unknown) schedules were discussed as well. (unknown) (no (unknown) (unknown) Smoking Status: (units (unknown) date) Never smoker unknown) (unknown) (no (unknown) (unknown) Speech: speech (units (unknown) date) normal unknown) (unknown) (no (unknown) (unknown) Status: Chronic (units (unknown) date) unknown) (unknown) (no (unknown) (unknown) Stopped for a (units ( unknown) date) few minutes in unknown) traffic: 0 = Never (None) (unknown) (no (unknown) (unknown) Symptoms (units (unkno wn) date) unknown) (unknown) (no (unknown) (unknown) Talking Branch: (units (unknown) date) denied and sleep unknown) walking (denied) (unknown) (no (unknown) (unknown) The importance (units (unknown) date) of relaxation and unknown) a regular sleep schedule has been discussed. (unknown) (no (unknown) (unknown) The patient (units (un known) date) reports symptoms unknown) of excessive daytime sleepiness as evidenced by (unknown) (no (unknown) (unknown) This can be seen (units (unknown) date) secondary to unknown) sleep apnea, depression, medical conditions or can (unknown) (no (unknown) (unknown) This note may (units ( unknown) date) have been all or unknown) partially generated using voice recognition (unknown) (no (unknown) (unknown) Tobacco + (units (unkn own) date) Substance Use unknown) (unknown) (no (unknown) (unknown) Tobacco Status (units (unknown) date) unknown) (unknown) (no (unknown) (unknown) Treatment (units (unkno wn) date) Effects: Insomnia unknown) Treatment Response/Side Effects: adherent to current (unknown) (no (unknown) (unknown) Treatment (units (unkn own) date) Response/Side unknown) Affects (unknown) (no (unknown) (unknown) Visit Reasons: (units (unknown) date) 6m-meds-pt moving unknown) soon (unknown) (no (unknown) (unknown) Visit type (FU): (units (unknown) date) follow up unknown) evaluation of insomnia and follow up evaluation of (unknown) (no (unknown) (unknown) Watching TV: 0 = (units (unknown) date) Never (None) unknown) (unknown) (no (unknown) (unknown) While alcohol is (units (unknown) date) well known to unknown) speed the onset of sleep, it disrupts sleep in (unknown) (no (unknown) (unknown) [History (units (unkno wn) date) Confirmed unknown) 06/20/22] (unknown) (no (unknown) (unknown) activities, you (units (unknown) date) may have more unknown) problems getting back to sleep during the night. (unknown) (no (unknown) (unknown) addition, (units (unkn own) date) avoiding unknown) nighttime bright light exposure, which can occur with many (unknown) (no (unknown) (unknown) and wakefulness. (units (unknown) date) Scheduled napping unknown) may be considered if appropriate for the (unknown) (no (unknown) (unknown) apnea not (units (unkn own) date) witnessed, unknown) choking or gasping Choking or Gasping Branch: denied, (unknown) (no (unknown) (unknown) as opposed to (units ( unknown) date) using more unknown) medication. She is willing to try behavioral therapy (unknown) (no (unknown) (unknown) at night, reports (units (unknown) date) dry mouth, denies unknown) sore throat in the morning, denies nocturnal (unknown) (no (unknown) (unknown) be an independent (units (unknown) date) problem. Her unknown) sleep study and previous chart were reviewed. She (unknown) (no (unknown) (unknown) bed a little (units (u nknown) date) early. discussed unknown) sleep restriction and the use of a nap as needed, (unknown) (no (unknown) (unknown) bedtime. Also (units (u nknown) date) dietary changes unknown) can cause sleep problems, if someone is struggling (unknown) (no (unknown) (unknown) biotin 10,000 (units ( unknown) date) mcg PO BID unknown) 11/22/20 [History Confirmed 06/20/22] (unknown) (no (unknown) (unknown) by trouble (units (unk nown) date) falling asleep, unknown) trouble staying asleep and non-restorative sleep. (unknown) (no (unknown) (unknown) can be seen (units (un known) date) secondary to unknown) sleep apnea, insomnia, depression, medical conditions (unknown) (no (unknown) (unknown) changes and (units (un known) date) continue with unknown) current medication dosage for now. (unknown) (no (unknown) (unknown) comfortable, the (units (unknown) date) room should be unknown) quiet, not too hot or cold, or too bright. (unknown) (no (unknown) (unknown) consentrating/fo (units (unknown) date) cusing durng the unknown) day (unknown) (no (unknown) (unknown) conversations and (units (unknown) date) activities before unknown) trying to go to sleep. Don't dwell on, or br (unknown) (no (unknown) (unknown) cough, denies (units ( unknown) date) nocturnal unknown) palpitations, denies heart burn symptoms at night, (unknown) (no (unknown) (unknown) daytime (units (unkno wn) date) sleepiness. She unknown) is concerned currently with multiple awakenings during (unknown) (no (unknown) (unknown) daytime sleeping (units (unknown) date) and an elevated unknown) [place] Sleepiness Scale score of 05/23. This (unknown) (no (unknown) (unknown) denies night (units (u nknown) date) sweats, reports unknown) morning headache (better), denies nasal congestion (unknown) (no (unknown) (unknown) denies nocturia, (units (unknown) date) denies pain, unknown) denies dizziness in the morning or denies trouble (unknown) (no (unknown) (unknown) did not see a (units ( unknown) date) significant unknown) improvement. She did well with Lunesta in the past. (unknown) (no (unknown) (unknown) dishes. And, (units (u nknown) date) remember, unknown) chocolate has caffeine. (unknown) (no (unknown) (unknown) done before bed (units (unknown) date) to help initiate unknown) a restful night's sleep. (unknown) (no (unknown) (unknown) dosage; in this (units (unknown) date) case, shet was unknown) started at 50mg for 2 weeks and then increased to (unknown) (no (unknown) (unknown) drowsy. (units (unkno wn) date) unknown) (unknown) (no (unknown) (unknown) epworth sleep (units (u nknown) date) scale score unknown) (01/21), bruxism (some clenching), sleep talking Sleep (unknown) (no (unknown) (unknown) eszopiclone 1 mg (units (unknown) date) tablet 1 mg PO unknown) BEDTIME PRN insomnia #30 tabs 01/10/22 [Rx (unknown) (no (unknown) (unknown) frequent, early (units (unknown) date) morning awakening unknown) frequent, spending time in bed not sleeping (unknown) (no (unknown) (unknown) has been (units (unkno wn) date) diagnosed with unknown) idiopathic hypersomnia and chronic insomnia in the past. (unknown) (no (unknown) (unknown) have occurred. (units (unknown) date) If there are any unknown) questions, please contact the Medical Records (unknown) (no (unknown) (unknown) her sleep (units (unkn own) date) history and her unknown) latest sleep study, which was negative for a primary (unknown) (no (unknown) (unknown) hypersomnia with (units (unknown) date) chronic insomnia unknown) for which she was on Adderall and Lunesta. She (unknown) (no (unknown) (unknown) hypersomnia (units (un known) date) unknown) (unknown) (no (unknown) (unknown) ing your (units (unkno wn) date) problems to bed. unknown) (unknown) (no (unknown) (unknown) insomnia (units (unkno wn) date) treatment unknown) (unknown) (no (unknown) (unknown) late with more (units (unknown) date) night awakenings unknown) of late. (unknown) (no (unknown) (unknown) levothyroxine (units ( unknown) date) 200 mcg tablet unknown) (Synthroid) 200 mcg PO DAILY 06/20/22 [History (unknown) (no (unknown) (unknown) listen to the (units ( unknown) date) radio, or read as unknown) if you associate falling asleep with these (unknown) (no (unknown) (unknown) may occur. (units (unk nown) date) Occasional unknown) wrong-word or 'sound-alike' substitutions may have (unknown) (no (unknown) (unknown) modafinil 100 mg (units (unknown) date) tablet 100 mg PO unknown) QAM Hypersomnia #30 tabs 04/05/22 [Rx (unknown) (no (unknown) (unknown) moderate, normal (units (unknown) date) bedtime (2100), unknown) normal wake time ([id number], [id number] on (unknown) (no (unknown) (unknown) morning. This (units ( unknown) date) continues to work unknown) well for her with less daytime sleeping and an (unknown) (no (unknown) (unknown) nortriptyline 50 (units (unknown) date) mg capsule 50 mg unknown) PO DAILY 04/13/19 [History Confirmed 06/20/22] (unknown) (no (unknown) (unknown) occurred due to (units (unknown) date) the inherent unknown) limitations of voice recognition software. Please (unknown) (no (unknown) (unknown) older people who (units (unknown) date) may not venture unknown) outside as frequently as children and adults. (unknown) (no (unknown) (unknown) optimal sleep (units ( unknown) date) schedule. unknown) (unknown) (no (unknown) (unknown) or can be a (units (un known) date) primary problem. unknown) The modafinil is typically started at 100 mg (unknown) (no (unknown) (unknown) personal (units (unkno wn) date) electronic unknown) devices, can also help maintain a healthy sleep-wake cycle. (unknown) (no (unknown) (unknown) read the note (units ( unknown) date) carefully and unknown) recognize, using context, where these substitutions (unknown) (no (unknown) (unknown) reviewed. (units (unkn own) date) unknown) (unknown) (no (unknown) (unknown) schedule. She (units ( unknown) date) has been doing unknown) well on the 0.5 mg of lunesta with frequent nights (unknown) (no (unknown) (unknown) sentences, no (units ( unknown) date) audible wheezes, unknown) no grunting and not labored (unknown) (no (unknown) (unknown) sleep disorder. (units (unknown) date) Stress most unknown) likely is the trigger of this bout of insomnia, (unknown) (no (unknown) (unknown) sleep quality (units ( unknown) date) okay and daytime unknown) sleepiness Daytime Sleepiness Branch 2: better (unknown) (no (unknown) (unknown) sleepiness. She (units (unknown) date) had a sleep study unknown) and MSLT and was diagnosed with idiopathic (unknown) (no (unknown) (unknown) software. (units (unkn own) date) Although every unknown) effort is made to edit content, loading inspector errors (unknown) (no (unknown) (unknown) starting dose (units ( unknown) date) unknown) (unknown) (no (unknown) (unknown) staying asleep (units (unknown) date) regularly and is unknown) feeling sleepier during the day. We discussed (unknown) (no (unknown) (unknown) sumatriptan (units (un known) date) succinate 6 unknown) mg/0.5 mL subcutaneous cartridge (refill) 6 mg SUBCUT (unknown) (no (unknown) (unknown) taken in the (units (u nknown) date) morning or late unknown) afternoon. A relaxing exercise, like yoga, can be (unknown) (no (unknown) (unknown) the day. (units (unkno wn) date) unknown) (unknown) (no (unknown) (unknown) the night. (units (unk nown) date) unknown) (unknown) (no (unknown) (unknown) the second half (units (unknown) date) as the body unknown) begins to metabolize the alcohol, causing arousal. (unknown) (no (unknown) (unknown) treatment stable (units (unknown) date) on treatment unknown) (unknown) (no (unknown) (unknown) vitamin B (units (unkn own) date) complex (B unknown) Complex-Vitamin B12 tablet) 1 tab PO DAILY 04/13/19 (unknown) (no (unknown) (unknown) was weaned off (units (unknown) date) the medication unknown) and a repeat sleep study did not show excessive (unknown) (no (unknown) (unknown) weekends), sleep (units (unknown) date) schedule, daytime unknown) somnolence absent, snoring not appreciated, (unknown) (no (unknown) (unknown) which case she (units (unknown) date) does not take it. unknown) She feels she has not been sleep as well of (unknown) (no (unknown) (unknown) which has been (units (unknown) date) going on for over unknown) a year. 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 she unknown) reports night awakenings of late and has been going to Result panel 3 (unknown) (no (unknown) (unknown) (no value) (units (unk nown) date) unknown) (unknown) (no (unknown) (unknown) (1) Insomnia: (units ( unknown) date) unknown) (unknown) (no (unknown) (unknown) (2) Idiopathic (units (unknown) date) hypersomnia: unknown) (unknown) (no (unknown) (unknown) * Eszopiclone; (units (unknown) date) effective at 0.5 unknown) mg (unknown) (no (unknown) (unknown) * Zaleplon (units (unk nown) date) unknown) (unknown) (no (unknown) (unknown) * Zolpoidem; (units (u nknown) date) ineffective unknown) (unknown) (no (unknown) (unknown) 0 = Would never (units (unknown) date) doze or sleep, 1 unknown) = Slight chance of dozing or sleeping, 2 = (unknown) (no (unknown) (unknown) 06/20/22 (units (unkno wn) date) unknown) (unknown) (no (unknown) (unknown) 100mg daily. She (units (unknown) date) found this was unknown) 'too much' and has settled on 25 mg in the (unknown) (no (unknown) (unknown) [id number] (units (unkno wn) date) unknown) (unknown) (no (unknown) (unknown) Adhere to (units (unkn own) date) regular mealtime unknown) schedule, avoid snacking (unknown) (no (unknown) (unknown) Affect: normal (units (unknown) date) affect unknown) (unknown) (no (unknown) (unknown) Age/Sex: 41 / F (units (unknown) date) Date of Service: unknown) (unknown) (no (unknown) (unknown) Allergies (units (unkn own) date) unknown) (unknown) (no (unknown) (unknown) [place] (units ( unknown) date) [id number] unknown) (unknown) (no (unknown) (unknown) Anxiety (units (unkno wn) date) unknown) (unknown) (no (unknown) (unknown) Assessment + (units (u nknown) date) Plan unknown) (unknown) (no (unknown) (unknown) Assessment and (units (unknown) date) Plan: unknown) (unknown) (no (unknown) (unknown) Associate your (units ( unknown) date) bed with sleep. unknown) It's not a good idea to use your bed to watch TV, (unknown) (no (unknown) (unknown) Attending Dr: (units ( unknown) date) Astrid Carrion unknown) DIRECTOR OF NURSES REGISTRY (unknown) (no (unknown) (unknown) Avoid alcohol (units ( unknown) date) after 4 pm unknown) (unknown) (no (unknown) (unknown) Avoid (units (unkno wn) date) medications which unknown) may interfere with sleep (unknown) (no (unknown) (unknown) Avoid random (units (u nknown) date) napping during unknown) the day; it can disturb the normal pattern of sleep (unknown) (no (unknown) (unknown) Avoid stimulants (units (unknown) date) such as caffeine, unknown) nicotine, and alcohol too close to bedtime. (unknown) (no (unknown) (unknown) Being a (units (unkno wn) date) passenger in a unknown) motor vehicle for an hour or so: 0 = Never (None) (unknown) (no (unknown) (unknown) Bipolar disorder (units (unknown) date) unknown) (unknown) (no (unknown) (unknown) Chief Complaint: (units (unknown) date) Patient is here unknown) to follow up on therapy for idiopathic (unknown) (no (unknown) (unknown) Clinical Course (units (unknown) date) unknown) (unknown) (no (unknown) (unknown) Cognition: (units (unk nown) date) normal cognition unknown) (unknown) (no (unknown) (unknown) Condition is (units (u nknown) date) Onset: currently unknown) stable and Chronic and ongoing condition (unknown) (no (unknown) (unknown) Confirmed (units (unkn own) date) 06/20/22] unknown) (unknown) (no (unknown) (unknown) Conjunctivae: (units ( unknown) date) conjunctivae unknown) normal (unknown) (no (unknown) (unknown) Consider weaning (units (unknown) date) caffeine use, unknown) starting with no caffeine after 3pm (unknown) (no (unknown) (unknown) Const (units (unkno wn) date) unknown) (unknown) (no (unknown) (unknown) Continue on (units (un known) date) Modafinil 1/4 tab unknown) of 100 mg tab (unknown) (no (unknown) (unknown) Currently she (units ( unknown) date) reports symptoms unknown) of trouble falling asleep at times, trouble (unknown) (no (unknown) (unknown) : 1980 (units (unknown) date) Acct:[id number] unknown) (unknown) (no (unknown) (unknown) Depression (units (unk n) date) unknown) (unknown) (no (unknown) (unknown) Dept at (units (o wn) date) . unknown) (unknown) (no (unknown) (unknown) Details: (units (o wn) date) unknown) (unknown) (no (unknown) (unknown) Documented By: (units (unknown) date) Astrid Carrion unknown) [facility] 06/20/22 1453 (unknown) (no (unknown) (unknown) Draft (units (unkno wn) date) unknown) (unknown) (no (unknown) (unknown) Drowsy driving (units (unknown) date) handout made unknown) available. (unknown) (no (unknown) (unknown) Ears: hearing (units ( unknown) date) grossly normal unknown) bilaterally (unknown) (no (unknown) (unknown) Effort + (units (unkno wn) date) Inspection: unknown) normal respiratory effort, able to speak in complete (unknown) (no (unknown) (unknown) Ensure adequate (units (unknown) date) exposure to unknown) natural light. This is particularly important for (unknown) (no (unknown) (unknown) [place] Score: 5 (units (unknown) date) unknown) (unknown) (no (unknown) (unknown) [place] (units (unkno wn) date) Sleepiness Scale unknown) score of 01/21. Risks and symptoms of drowsiness were (unknown) (no (unknown) (unknown) [place] (units (unkno wn) date) Sleepiness Scale unknown) (unknown) (no (unknown) (unknown) Establish a (units (unk n) date) regular relaxing unknown) bedtime routine. Try to avoid emotionally upsetting (unknown) (no (unknown) (unknown) Exam (units (unkno wn) date) unknown) (unknown) (no (unknown) (unknown) Eyes (units (unkno wn) date) unknown) (unknown) (no (unknown) (unknown) Family History (units (unknown) date) (Reviewed unknown) 01/10/22 @ 14:58 by J Luis Tirado MD) (unknown) (no (unknown) (unknown) Family/Other CAD (units (unknown) date) (coronary artery unknown) disease) (unknown) (no (unknown) (unknown) Father (units (unkno wn) date) Hypertension unknown) (unknown) (no (unknown) (unknown) Food can be (units (un known) date) disruptive right unknown) before sleep; stay away from large meals close to (unknown) (no (unknown) (unknown) General: (units (unkno wn) date) cooperative, unknown) comfortable (casually groomed) and no acute distress (unknown) (no (unknown) (unknown) General: patient (units (unknown) date) alert and patient unknown) oriented x3 (unknown) (no (unknown) (unknown) Get regular (units (un known) date) moderate exercise unknown) (30 minutes, 3x/week) (unknown) (no (unknown) (unknown) Grandfather (units (un known) date) Dementia unknown) (unknown) (no (unknown) (unknown) HENMT (units (unkno wn) date) unknown) (unknown) (no (unknown) (unknown) HPI Sleep Follow (units (unknown) date) Up unknown) (unknown) (no (unknown) (unknown) HPI (units (unkno wn) date) unknown) (unknown) (no (unknown) (unknown) Head: normal to (units (unknown) date) inspection unknown) (unknown) (no (unknown) (unknown) Hypersomnia (units (un known) date) Treatment unknown) Response/Side Effects: adherent to current narcolepsy (unknown) (no (unknown) (unknown) Hypersomnia (units (un known) date) unknown) (unknown) (no (unknown) (unknown) Hypnotics are (units ( unknown) date) being employed at unknown) a very low dose to help normalize her sleep (unknown) (no (unknown) (unknown) Hypothyroidism (units (unknown) date) unknown) (unknown) (no (unknown) (unknown) Idiopathic (units (unk nown) date) hypersomnia unknown) (unknown) (no (unknown) (unknown) Initially (units (unkn own) date) presented to [facility] unknown) in 2008 with a complaint of snoring and daytime (unknown) (no (unknown) (unknown) Insomnia (units (unkno wn) date) unknown) (unknown) (no (unknown) (unknown) Intake (units (unkno wn) date) unknown) (unknown) (no (unknown) (unknown) Light exposure (units (unknown) date) during the day unknown) helps maintain a healthy sleep-wake cycle. In (unknown) (no (unknown) (unknown) Loc: SLEEP (units (unk nown) date) unknown) (unknown) (no (unknown) (unknown) Lunesta 1 mg (units (u nknown) date) tab, 1 tab at unknown) bedtime (unknown) (no (unknown) (unknown) Lying down in (units ( unknown) date) the afternoon: 3 unknown) = High (unknown) (no (unknown) (unknown) Make sure that (units ( unknown) date) the sleep unknown) environment is pleasant and relaxing. The bed should be (unknown) (no (unknown) (unknown) Medical History (units (unknown) date) (Reviewed unknown) 01/10/22 @ 14:58 by J Luis Tirado MD) (unknown) (no (unknown) (unknown) Medication (units (unk nown) date) review over the unknown) years: (unknown) (no (unknown) (unknown) Medications (units (un known) date) unknown) (unknown) (no (unknown) (unknown) Methylphenidate; (units (unknown) date) helpful; unknown) discontinued because couldn't take amphetamine (unknown) (no (unknown) (unknown) Modafinil; more (units (unknown) date) helpful at very unknown) low doses then recommended (unknown) (no (unknown) (unknown) Moderate chance (units (unknown) date) of dozing or unknown) sleeping, 3 = High chance of dozing or sleeping (unknown) (no (unknown) (unknown) Mood: congruent (units (unknown) date) mood unknown) (unknown) (no (unknown) (unknown) Mother Alcohol (units (unknown) date) abuse unknown) (unknown) (no (unknown) (unknown) Neuro (units (unkno wn) date) unknown) (unknown) (no (unknown) (unknown) No Known Drug (units ( unknown) date) Allergies Allergy unknown) (Verified 06/20/22 14:53) (unknown) (no (unknown) (unknown) Nutritional (units (un known) date) Appearance: unknown) overweight (unknown) (no (unknown) (unknown) ONCE 06/20/22 (units ( unknown) date) [History unknown) Confirmed 06/20/22] (unknown) (no (unknown) (unknown) Obesity (units (unkno wn) date) unknown) (unknown) (no (unknown) (unknown) PFSH (units (unkno wn) date) unknown) (unknown) (no (unknown) (unknown) Pain scale (units (unk nown) date) (1-10): 0 unknown) (unknown) (no (unknown) (unknown) Pain (units (unkno wn) date) unknown) (unknown) (no (unknown) (unknown) Patient (units (unkno wn) date) instructed to use unknown) scheduled naps as needed for drowsiness safety (unknown) (no (unknown) (unknown) Patient reports (units (unknown) date) difficulty unknown) falling asleep is denied, difficulty staying asleep (unknown) (no (unknown) (unknown) Patient reports (units (unknown) date) symptoms of unknown) chronic insomnia for more than 3 months as evidenced (unknown) (no (unknown) (unknown) Patient was (units (un known) date) instructed to unknown) avoid driving or operating heavy machinery when (unknown) (no (unknown) (unknown) Patient: (units (unkno wn) date) ClaudyJohn R unknown) MR#: [id number] (unknown) (no (unknown) (unknown) Pertinent (units (unkn own) date) Positives/Negativ unknown) es (unknown) (no (unknown) (unknown) Plan (units (unkno wn) date) unknown) (unknown) (no (unknown) (unknown) Primary insomnia (units (unknown) date) unknown) (unknown) (no (unknown) (unknown) Properly timed (units (unknown) date) exercise can unknown) promote good sleep. Vigorous exercise should be (unknown) (no (unknown) (unknown) Psych (units (unkno wn) date) unknown) (unknown) (no (unknown) (unknown) Questionnaires (units (unknown) date) unknown) (unknown) (no (unknown) (unknown) Reason For Visit (units (unknown) date) unknown) (unknown) (no (unknown) (unknown) Resp (units (unkno wn) date) unknown) (unknown) (no (unknown) (unknown) Sclera: sclerae (units (unknown) date) normal unknown) (unknown) (no (unknown) (unknown) She is currently (units (unknown) date) doing well on 0.5 unknown) mg nightly, unless she goes to bed late in (unknown) (no (unknown) (unknown) She taking 25 mg (units (unknown) date) of the Nuvigil in unknown) the morning and it keeps her alert during (unknown) (no (unknown) (unknown) Signed By: (units (unk nown) date) unknown) (unknown) (no (unknown) (unknown) Sitting and (units (un known) date) Readin = unknown) Never (None) (unknown) (no (unknown) (unknown) Sitting and (units (un known) date) talking to unknown) someone: 0 = Never (None) (unknown) (no (unknown) (unknown) Sitting inactive (units (unknown) date) in a public unknown) place: 1 = Slight (unknown) (no (unknown) (unknown) Sitting quietly (units (unknown) date) after lunch (no unknown) alcohol): 1 = Slight (unknown) (no (unknown) (unknown) Sleep Visit (units (un known) date) unknown) (unknown) (no (unknown) (unknown) [facility]) (unknown) (no (unknown) (unknown) Sleep hygiene (units ( unknown) date) and sleep unknown) schedules were discussed as well. (unknown) (no (unknown) (unknown) Smoking Status: (units (unknown) date) Never smoker unknown) (unknown) (no (unknown) (unknown) Speech: speech (units (unknown) date) normal unknown) (unknown) (no (unknown) (unknown) Status: Chronic (units (unknown) date) unknown) (unknown) (no (unknown) (unknown) Stopped for a (units ( unknown) date) few minutes in unknown) traffic: 0 = Never (None) (unknown) (no (unknown) (unknown) Symptoms (units (unkno wn) date) unknown) (unknown) (no (unknown) (unknown) Talking Branch: (units (unknown) date) denied and sleep unknown) walking (denied) (unknown) (no (unknown) (unknown) The importance (units (unknown) date) of relaxation and unknown) a regular sleep schedule has been discussed. (unknown) (no (unknown) (unknown) The patient (units (un known) date) reports symptoms unknown) of excessive daytime sleepiness as evidenced by (unknown) (no (unknown) (unknown) This can be seen (units (unknown) date) secondary to unknown) sleep apnea, depression, medical conditions or can (unknown) (no (unknown) (unknown) This note may (units ( unknown) date) have been all or unknown) partially generated using voice recognition (unknown) (no (unknown) (unknown) Tobacco + (units (unkn own) date) Substance Use unknown) (unknown) (no (unknown) (unknown) Tobacco Status (units (unknown) date) unknown) (unknown) (no (unknown) (unknown) Treatment (units (unkno wn) date) Effects: Insomnia unknown) Treatment Response/Side Effects: adherent to current (unknown) (no (unknown) (unknown) Treatment (units (unkn own) date) Response/Side unknown) Affects (unknown) (no (unknown) (unknown) Visit Reasons: (units (unknown) date) 6m-meds-pt moving unknown) soon (unknown) (no (unknown) (unknown) Visit type (FU): (units (unknown) date) follow up unknown) evaluation of insomnia and follow up evaluation of (unknown) (no (unknown) (unknown) Watching TV: 0 = (units (unknown) date) Never (None) unknown) (unknown) (no (unknown) (unknown) While alcohol is (units (unknown) date) well known to unknown) speed the onset of sleep, it disrupts sleep in (unknown) (no (unknown) (unknown) [History (units (unkno wn) date) Confirmed unknown) 06/20/22] (unknown) (no (unknown) (unknown) activities, you (units (unknown) date) may have more unknown) problems getting back to sleep during the night. (unknown) (no (unknown) (unknown) addition, (units (unkn own) date) avoiding unknown) nighttime bright light exposure, which can occur with many (unknown) (no (unknown) (unknown) and wakefulness. (units (unknown) date) Scheduled napping unknown) may be considered if appropriate for the (unknown) (no (unknown) (unknown) apnea not (units (unkn own) date) witnessed, unknown) choking or gasping Choking or Gasping Branch: denied, (unknown) (no (unknown) (unknown) as opposed to (units ( unknown) date) using more unknown) medication. She is willing to try behavioral therapy (unknown) (no (unknown) (unknown) at night, reports (units (unknown) date) dry mouth, denies unknown) sore throat in the morning, denies nocturnal (unknown) (no (unknown) (unknown) be an independent (units (unknown) date) problem. Her unknown) sleep study and previous chart were reviewed. She (unknown) (no (unknown) (unknown) bed a little (units (u nknown) date) early. discussed unknown) sleep restriction and the use of a nap as needed, (unknown) (no (unknown) (unknown) bedtime. Also (units (u nknown) date) dietary changes unknown) can cause sleep problems, if someone is struggling (unknown) (no (unknown) (unknown) biotin 10,000 (units ( unknown) date) mcg PO BID unknown) 11/22/20 [History Confirmed 06/20/22] (unknown) (no (unknown) (unknown) by trouble (units (unk nown) date) falling asleep, unknown) trouble staying asleep and non-restorative sleep. (unknown) (no (unknown) (unknown) can be seen (units (un known) date) secondary to unknown) sleep apnea, insomnia, depression, medical conditions (unknown) (no (unknown) (unknown) changes and (units (un known) date) continue with unknown) current medication dosage for now. (unknown) (no (unknown) (unknown) comfortable, the (units (unknown) date) room should be unknown) quiet, not too hot or cold, or too bright. (unknown) (no (unknown) (unknown) consentrating/fo (units (unknown) date) cusing durng the unknown) day (unknown) (no (unknown) (unknown) conversations and (units (unknown) date) activities before unknown) trying to go to sleep. Don't dwell on, or br (unknown) (no (unknown) (unknown) cough, denies (units ( unknown) date) nocturnal unknown) palpitations, denies heart burn symptoms at night, (unknown) (no (unknown) (unknown) daytime (units (unkno wn) date) sleepiness. She unknown) is concerned currently with multiple awakenings during (unknown) (no (unknown) (unknown) daytime sleeping (units (unknown) date) and an elevated unknown) [place] Sleepiness Scale score of 05/23. This (unknown) (no (unknown) (unknown) denies night (units (u nknown) date) sweats, reports unknown) morning headache (better), denies nasal congestion (unknown) (no (unknown) (unknown) denies nocturia, (units (unknown) date) denies pain, unknown) denies dizziness in the morning or denies trouble (unknown) (no (unknown) (unknown) did not see a (units ( unknown) date) significant unknown) improvement. She did well with Lunesta in the past. (unknown) (no (unknown) (unknown) dishes. And, (units (u nknown) date) remember, unknown) chocolate has caffeine. (unknown) (no (unknown) (unknown) done before bed (units (unknown) date) to help initiate unknown) a restful night's sleep. (unknown) (no (unknown) (unknown) dosage; in this (units (unknown) date) case, shet was unknown) started at 50mg for 2 weeks and then increased to (unknown) (no (unknown) (unknown) drowsy. (units (unkno wn) date) unknown) (unknown) (no (unknown) (unknown) epworth sleep (units (u nknown) date) scale score unknown) (01/21), bruxism (some clenching), sleep talking Sleep (unknown) (no (unknown) (unknown) eszopiclone 1 mg (units (unknown) date) tablet 1 mg PO unknown) BEDTIME PRN insomnia #30 tabs 01/10/22 [Rx (unknown) (no (unknown) (unknown) frequent, early (units (unknown) date) morning awakening unknown) frequent, spending time in bed not sleeping (unknown) (no (unknown) (unknown) has been (units (unkno wn) date) diagnosed with unknown) idiopathic hypersomnia and chronic insomnia in the past. (unknown) (no (unknown) (unknown) have occurred. (units (unknown) date) If there are any unknown) questions, please contact the Medical Records (unknown) (no (unknown) (unknown) her sleep (units (unkn own) date) history and her unknown) latest sleep study, which was negative for a primary (unknown) (no (unknown) (unknown) hypersomnia with (units (unknown) date) chronic insomnia unknown) for which she was on Adderall and Lunesta. She (unknown) (no (unknown) (unknown) hypersomnia (units (un known) date) unknown) (unknown) (no (unknown) (unknown) ing your (units (unkno wn) date) problems to bed. unknown) (unknown) (no (unknown) (unknown) insomnia (units (unkno wn) date) treatment unknown) (unknown) (no (unknown) (unknown) late with more (units (unknown) date) night awakenings unknown) of late. (unknown) (no (unknown) (unknown) levothyroxine (units ( unknown) date) 200 mcg tablet unknown) (Synthroid) 200 mcg PO DAILY 06/20/22 [History (unknown) (no (unknown) (unknown) listen to the (units ( unknown) date) radio, or read as unknown) if you associate falling asleep with these (unknown) (no (unknown) (unknown) may occur. (units (unk nown) date) Occasional unknown) wrong-word or 'sound-alike' substitutions may have (unknown) (no (unknown) (unknown) modafinil 100 mg (units (unknown) date) tablet 100 mg PO unknown) QAM Hypersomnia #30 tabs 04/05/22 [Rx (unknown) (no (unknown) (unknown) moderate, normal (units (unknown) date) bedtime (2100), unknown) normal wake time ([id number], [id number] on (unknown) (no (unknown) (unknown) morning. This (units ( unknown) date) continues to work unknown) well for her with less daytime sleeping and an (unknown) (no (unknown) (unknown) nortriptyline 50 (units (unknown) date) mg capsule 50 mg unknown) PO DAILY 04/13/19 [History Confirmed 06/20/22] (unknown) (no (unknown) (unknown) occurred due to (units (unknown) date) the inherent unknown) limitations of voice recognition software. Please (unknown) (no (unknown) (unknown) older people who (units (unknown) date) may not venture unknown) outside as frequently as children and adults. (unknown) (no (unknown) (unknown) optimal sleep (units ( unknown) date) schedule. unknown) (unknown) (no (unknown) (unknown) or can be a (units (un known) date) primary problem. unknown) The modafinil is typically started at 100 mg (unknown) (no (unknown) (unknown) personal (units (unkno wn) date) electronic unknown) devices, can also help maintain a healthy sleep-wake cycle. (unknown) (no (unknown) (unknown) read the note (units ( unknown) date) carefully and unknown) recognize, using context, where these substitutions (unknown) (no (unknown) (unknown) reviewed. (units (unkn own) date) unknown) (unknown) (no (unknown) (unknown) schedule. She (units ( unknown) date) has been doing unknown) well on the 0.5 mg of lunesta with frequent nights (unknown) (no (unknown) (unknown) sentences, no (units ( unknown) date) audible wheezes, unknown) no grunting and not labored (unknown) (no (unknown) (unknown) sleep disorder. (units (unknown) date) Stress most unknown) likely is the trigger of this bout of insomnia, (unknown) (no (unknown) (unknown) sleep quality (units ( unknown) date) okay and daytime unknown) sleepiness Daytime Sleepiness Branch 2: better (unknown) (no (unknown) (unknown) sleepiness. She (units (unknown) date) had a sleep study unknown) and MSLT and was diagnosed with idiopathic (unknown) (no (unknown) (unknown) software. (units (unkn own) date) Although every unknown) effort is made to edit content, loading inspector errors (unknown) (no (unknown) (unknown) starting dose (units ( unknown) date) unknown) (unknown) (no (unknown) (unknown) staying asleep (units (unknown) date) regularly and is unknown) feeling sleepier during the day. We discussed (unknown) (no (unknown) (unknown) sumatriptan (units (un known) date) succinate 6 unknown) mg/0.5 mL subcutaneous cartridge (refill) 6 mg SUBCUT (unknown) (no (unknown) (unknown) taken in the (units (u nknown) date) morning or late unknown) afternoon. A relaxing exercise, like yoga, can be (unknown) (no (unknown) (unknown) the day. (units (unkno wn) date) unknown) (unknown) (no (unknown) (unknown) the night. (units (unk nown) date) unknown) (unknown) (no (unknown) (unknown) the second half (units (unknown) date) as the body unknown) begins to metabolize the alcohol, causing arousal. (unknown) (no (unknown) (unknown) treatment stable (units (unknown) date) on treatment unknown) (unknown) (no (unknown) (unknown) vitamin B (units (unkn own) date) complex (B unknown) Complex-Vitamin B12 tablet) 1 tab PO DAILY 04/13/19 (unknown) (no (unknown) (unknown) was weaned off (units (unknown) date) the medication unknown) and a repeat sleep study did not show excessive (unknown) (no (unknown) (unknown) weekends), sleep (units (unknown) date) schedule, daytime unknown) somnolence absent, snoring not appreciated, (unknown) (no (unknown) (unknown) which case she (units (unknown) date) does not take it. unknown) She feels she has not been sleep as well of (unknown) (no (unknown) (unknown) which has been (units (unknown) date) going on for over unknown) a year. 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 she unknown) reports night awakenings of late and has been going to Result panel 4 (unknown) (no (unknown) (unknown) (no value) (units (unk nown) date) unknown) (unknown) (no (unknown) (unknown) (1) Insomnia: (units ( unknown) date) unknown) (unknown) (no (unknown) (unknown) (2) Idiopathic (units (unknown) date) hypersomnia: unknown) (unknown) (no (unknown) (unknown) * Eszopiclone; (units (unknown) date) effective at 0.5 unknown) mg (unknown) (no (unknown) (unknown) * Zaleplon (units (unk nown) date) unknown) (unknown) (no (unknown) (unknown) * Zolpoidem; (units (u nknown) date) ineffective unknown) (unknown) (no (unknown) (unknown) 0 = Would never (units (unknown) date) doze or sleep, 1 unknown) = Slight chance of dozing or sleeping, 2 = (unknown) (no (unknown) (unknown) 06/20/22 (units (unkno wn) date) unknown) (unknown) (no (unknown) (unknown) 100mg daily. She (units (unknown) date) found this was unknown) 'too much' and has settled on 25 mg in the (unknown) (no (unknown) (unknown) [address] (units (unkno wn) date) unknown) (unknown) (no (unknown) (unknown) Adhere to (units (unkn own) date) regular mealtime unknown) schedule, avoid snacking (unknown) (no (unknown) (unknown) Affect: normal (units (unknown) date) affect unknown) (unknown) (no (unknown) (unknown) Age/Sex: 41 / F (units (unknown) date) Date of Service: unknown) (unknown) (no (unknown) (unknown) Allergies (units (unkn own) date) unknown) (unknown) (no (unknown) (unknown) [place], [place] (units ( unknown) date) [id number] unknown) (unknown) (no (unknown) (unknown) Anxiety (units (unkno wn) date) unknown) (unknown) (no (unknown) (unknown) Assessment + (units (u nknown) date) Plan unknown) (unknown) (no (unknown) (unknown) Assessment and (units (unknown) date) Plan: unknown) (unknown) (no (unknown) (unknown) Associate your (units ( unknown) date) bed with sleep. unknown) It's not a good idea to use your bed to watch TV, (unknown) (no (unknown) (unknown) Attending Dr: (units ( unknown) date) Astrid Carrion unknown) DIRECTOR OF NURSES REGISTRY (unknown) (no (unknown) (unknown) Avoid alcohol (units ( unknown) date) after 4 pm unknown) (unknown) (no (unknown) (unknown) Avoid (units (unkno wn) date) medications which unknown) may interfere with sleep (unknown) (no (unknown) (unknown) Avoid random (units (u nknown) date) napping during unknown) the day; it can disturb the normal pattern of sleep (unknown) (no (unknown) (unknown) Avoid stimulants (units (unknown) date) such as caffeine, unknown) nicotine, and alcohol too close to bedtime. (unknown) (no (unknown) (unknown) Being a (units (unkno wn) date) passenger in a unknown) motor vehicle for an hour or so: 0 = Never (None) (unknown) (no (unknown) (unknown) Bipolar disorder (units (unknown) date) unknown) (unknown) (no (unknown) (unknown) Branch: denied, (units (unknown) date) epworth sleep unknown) scale score (02/20), bruxism (some clenching,mouth (unknown) (no (unknown) (unknown) Cardiac (units (unkno wn) date) unknown) (unknown) (no (unknown) (unknown) Chief Complaint: (units (unknown) date) Patient is here unknown) to follow up on therapy for idiopathic (unknown) (no (unknown) (unknown) Clinical Course (units (unknown) date) unknown) (unknown) (no (unknown) (unknown) Cognition: (units (unk nown) date) normal cognition unknown) (unknown) (no (unknown) (unknown) Condition is (units (u nknown) date) Onset: currently unknown) stable and Chronic and ongoing condition (unknown) (no (unknown) (unknown) Confirmed (units (unkn own) date) 06/20/22] unknown) (unknown) (no (unknown) (unknown) Conjunctivae: (units ( unknown) date) conjunctivae unknown) normal (unknown) (no (unknown) (unknown) Consider weaning (units (unknown) date) caffeine use, unknown) starting with no caffeine after 3pm (unknown) (no (unknown) (unknown) Const (units (unkno wn) date) unknown) (unknown) (no (unknown) (unknown) Continue on (units (un known) date) Modafinil /4 tab unknown) of 100 mg tab (unknown) (no (unknown) (unknown) Currently she (units ( unknown) date) reports symptoms unknown) of trouble falling asleep at times, trouble (unknown) (no (unknown) (unknown) : 1980 (units (unknown) date) Acct:[id number] unknown) (unknown) (no (unknown) (unknown) Denies chest (units (u nknown) date) pain unknown) (unknown) (no (unknown) (unknown) Denies daytime (units (unknown) date) sleepiness and unknown) Reports difficulty sleeping (unknown) (no (unknown) (unknown) Denies dyspnea (units (unknown) date) at night unknown) (unknown) (no (unknown) (unknown) Depression (units (unk nown) date) unknown) (unknown) (no (unknown) (unknown) Dept at (units (unkno wn) date) . unknown) (unknown) (no (unknown) (unknown) Details: (units (unkno wn) date) unknown) (unknown) (no (unknown) (unknown) Documented By: (units (unknown) date) Astrid Carrion unknown) [facility] 06/20/22 1453 (unknown) (no (unknown) (unknown) Draft (units (unkno wn) date) unknown) (unknown) (no (unknown) (unknown) Drowsy driving (units (unknown) date) handout made unknown) available. (unknown) (no (unknown) (unknown) Ears: hearing (units ( unknown) date) grossly normal unknown) bilaterally (unknown) (no (unknown) (unknown) Effort + (units (unkno wn) date) Inspection: unknown) normal respiratory effort, able to speak in complete (unknown) (no (unknown) (unknown) Ensure adequate (units (unknown) date) exposure to unknown) natural light. This is particularly important for (unknown) (no (unknown) (unknown) [place] Score: 5 (units (unknown) date) unknown) (unknown) (no (unknown) (unknown) [place] (units (unkno wn) date) Sleepiness Scale unknown) score of 01/21. Risks and symptoms of drowsiness were (unknown) (no (unknown) (unknown) [place] (units (unkno wn) date) Sleepiness Scale unknown) (unknown) (no (unknown) (unknown) Establish a (units (unk nown) date) regular relaxing unknown) bedtime routine. Try to avoid emotionally upsetting (unknown) (no (unknown) (unknown) Exacerbating/All (units (unknown) date) eviating Factors unknown) (unknown) (no (unknown) (unknown) Exam (units (unkno wn) date) unknown) (unknown) (no (unknown) (unknown) Eyes (units (unkno wn) date) unknown) (unknown) (no (unknown) (unknown) Family History (units (unknown) date) (Reviewed unknown) 01/10/22 @ 14:58 by J Luis Tirado MD) (unknown) (no (unknown) (unknown) Family/Other CAD (units (unknown) date) (coronary artery unknown) disease) (unknown) (no (unknown) (unknown) Father (units (unkno wn) date) Hypertension unknown) (unknown) (no (unknown) (unknown) Food can be (units (un known) date) disruptive right unknown) before sleep; stay away from large meals close to (unknown) (no (unknown) (unknown) General: (units (unkno wn) date) cooperative, unknown) comfortable (casually groomed) and no acute distress (unknown) (no (unknown) (unknown) General: patient (units (unknown) date) alert and patient unknown) oriented x3 (unknown) (no (unknown) (unknown) Get regular (units (un known) date) moderate exercise unknown) (30 minutes, 3x/week) (unknown) (no (unknown) (unknown) Grandfather (units (un known) date) Dementia unknown) (unknown) (no (unknown) (unknown) HENMT (units (unkno wn) date) unknown) (unknown) (no (unknown) (unknown) HPI Sleep Follow (units (unknown) date) Up unknown) (unknown) (no (unknown) (unknown) HPI (units (unkno wn) date) unknown) (unknown) (no (unknown) (unknown) Head: normal to (units (unknown) date) inspection unknown) (unknown) (no (unknown) (unknown) Hypersomnia (units (un known) date) Treatment unknown) Response/Side Effects: adherent to current narcolepsy (unknown) (no (unknown) (unknown) Hypersomnia (units (un known) date) unknown) (unknown) (no (unknown) (unknown) Hypnotics are (units ( unknown) date) being employed at unknown) a very low dose to help normalize her sleep (unknown) (no (unknown) (unknown) Hypothyroidism (units (unknown) date) unknown) (unknown) (no (unknown) (unknown) Idiopathic (units (unk n) date) hypersomnia unknown) (unknown) (no (unknown) (unknown) Initially (units (unkn own) date) presented to [facility] unknown) in 2008 with a complaint of snoring and daytime (unknown) (no (unknown) (unknown) Insomnia (units (unkno wn) date) unknown) (unknown) (no (unknown) (unknown) Intake (units (unkno wn) date) unknown) (unknown) (no (unknown) (unknown) Light exposure (units (unknown) date) during the day unknown) helps maintain a healthy sleep-wake cycle. In (unknown) (no (unknown) (unknown) Loc: SLEEP (units (unk nown) date) unknown) (unknown) (no (unknown) (unknown) Lunesta 1 mg (units (u nknown) date) tab, 1 tab at unknown) bedtime (unknown) (no (unknown) (unknown) Lying down in (units ( unknown) date) the afternoon: 3 unknown) = High (unknown) (no (unknown) (unknown) Make sure that (units ( unknown) date) the sleep unknown) environment is pleasant and relaxing. The bed should be (unknown) (no (unknown) (unknown) Medical History (units (unknown) date) (Reviewed unknown) 01/10/22 @ 14:58 by J Luis Tirado MD) (unknown) (no (unknown) (unknown) Medication (units (unk nown) date) review over the unknown) years: (unknown) (no (unknown) (unknown) Medications (units (un known) date) unknown) (unknown) (no (unknown) (unknown) Methylphenidate; (units (unknown) date) helpful; unknown) discontinued because couldn't take amphetamine (unknown) (no (unknown) (unknown) Modafinil; more (units (unknown) date) helpful at very unknown) low doses then recommended (unknown) (no (unknown) (unknown) Moderate chance (units (unknown) date) of dozing or unknown) sleeping, 3 = High chance of dozing or sleeping (unknown) (no (unknown) (unknown) Mood: congruent (units (unknown) date) mood unknown) (unknown) (no (unknown) (unknown) Mother Alcohol (units (unknown) date) abuse unknown) (unknown) (no (unknown) (unknown) Neuro (units (unkno wn) date) unknown) (unknown) (no (unknown) (unknown) No Known Drug (units ( unknown) date) Allergies Allergy unknown) (Verified 06/20/22 14:53) (unknown) (no (unknown) (unknown) Nutritional (units (un known) date) Appearance: unknown) overweight (unknown) (no (unknown) (unknown) ONCE 06/20/22 (units ( unknown) date) [History unknown) Confirmed 06/20/22] (unknown) (no (unknown) (unknown) Obesity (units (unkno wn) date) unknown) (unknown) (no (unknown) (unknown) PFSH (units (unkno wn) date) unknown) (unknown) (no (unknown) (unknown) Pain scale (units (unk nown) date) (1-10): 0 unknown) (unknown) (no (unknown) (unknown) Pain (units (unkno wn) date) unknown) (unknown) (no (unknown) (unknown) Patient (units (unkno wn) date) instructed to use unknown) scheduled naps as needed for drowsiness safety (unknown) (no (unknown) (unknown) Patient reports (units (unknown) date) alcohol Sleep unknown) Alcohol Branch: daily (one glass of wine or a (unknown) (no (unknown) (unknown) Patient reports (units (unknown) date) difficulty unknown) falling asleep is denied, difficulty staying asleep (unknown) (no (unknown) (unknown) Patient reports (units (unknown) date) symptoms of unknown) chronic insomnia for more than 3 months as evidenced (unknown) (no (unknown) (unknown) Patient was (units (un known) date) instructed to unknown) avoid driving or operating heavy machinery when (unknown) (no (unknown) (unknown) Patient: (units (unkno wn) date) John Olguin unknown) MR#: [id number] (unknown) (no (unknown) (unknown) Pertinent (units (unkn own) date) Positives/Negativ unknown) es (unknown) (no (unknown) (unknown) Plan (units (unkno wn) date) unknown) (unknown) (no (unknown) (unknown) Primary insomnia (units (unknown) date) unknown) (unknown) (no (unknown) (unknown) Properly timed (units (unknown) date) exercise can unknown) promote good sleep. Vigorous exercise should be (unknown) (no (unknown) (unknown) Psych (units (unkno wn) date) unknown) (unknown) (no (unknown) (unknown) Psychological (units ( unknown) date) unknown) (unknown) (no (unknown) (unknown) Questionnaires (units (unknown) date) unknown) (unknown) (no (unknown) (unknown) ROS Sleep (units (unkn own) date) unknown) (unknown) (no (unknown) (unknown) Reason For Visit (units (unknown) date) unknown) (unknown) (no (unknown) (unknown) Reports napping (units (unknown) date) not at all unknown) (unknown) (no (unknown) (unknown) Reports seasonal (units (unknown) date) allergies unknown) (unknown) (no (unknown) (unknown) Resp (units (unkno wn) date) unknown) (unknown) (no (unknown) (unknown) Respiratory (units (un known) date) unknown) (unknown) (no (unknown) (unknown) Sclera: sclerae (units (unknown) date) normal unknown) (unknown) (no (unknown) (unknown) She is currently (units (unknown) date) doing well on 0.5 unknown) mg nightly, unless she goes to bed late in (unknown) (no (unknown) (unknown) She taking 25 mg (units (unknown) date) of the Nuvigil in unknown) the morning and it keeps her alert during (unknown) (no (unknown) (unknown) Signed By: (units (unk nown) date) unknown) (unknown) (no (unknown) (unknown) Sitting and (units (un known) date) Readin = unknown) Never (None) (unknown) (no (unknown) (unknown) Sitting and (units (un known) date) talking to unknown) someone: 0 = Never (None) (unknown) (no (unknown) (unknown) Sitting inactive (units (unknown) date) in a public unknown) place: 1 = Slight (unknown) (no (unknown) (unknown) Sitting quietly (units (unknown) date) after lunch (no unknown) alcohol): 1 = Slight (unknown) (no (unknown) (unknown) Sleep Visit (units (un known) date) unknown) (unknown) (no (unknown) (unknown) [facility]) (unknown) (no (unknown) (unknown) Sleep hygiene (units ( unknown) date) and sleep unknown) schedules were discussed as well. (unknown) (no (unknown) (unknown) Smoking Status: (units (unknown) date) Never smoker unknown) (unknown) (no (unknown) (unknown) Speech: speech (units (unknown) date) normal unknown) (unknown) (no (unknown) (unknown) Status: Chronic (units (unknown) date) unknown) (unknown) (no (unknown) (unknown) Stopped for a (units ( unknown) date) few minutes in unknown) traffic: 0 = Never (None) (unknown) (no (unknown) (unknown) Symptoms (units (unkno wn) date) unknown) (unknown) (no (unknown) (unknown) The importance (units (unknown) date) of relaxation and unknown) a regular sleep schedule has been discussed. (unknown) (no (unknown) (unknown) The patient (units (un known) date) reports symptoms unknown) of excessive daytime sleepiness as evidenced by (unknown) (no (unknown) (unknown) This can be seen (units (unknown) date) secondary to unknown) sleep apnea, depression, medical conditions or can (unknown) (no (unknown) (unknown) This note may (units ( unknown) date) have been all or unknown) partially generated using voice recognition (unknown) (no (unknown) (unknown) Tobacco + (units (unkn own) date) Substance Use unknown) (unknown) (no (unknown) (unknown) Tobacco Status (units (unknown) date) unknown) (unknown) (no (unknown) (unknown) Treatment (units (unkno wn) date) Effects: Insomnia unknown) Treatment Response/Side Effects: adherent to current (unknown) (no (unknown) (unknown) Treatment (units (unkn own) date) Response/Side unknown) Affects (unknown) (no (unknown) (unknown) Visit Reasons: (units (unknown) date) 6m-meds-pt moving unknown) soon (unknown) (no (unknown) (unknown) Visit type (FU): (units (unknown) date) follow up unknown) evaluation of insomnia and follow up evaluation of (unknown) (no (unknown) (unknown) Watching TV: 0 = (units (unknown) date) Never (None) unknown) (unknown) (no (unknown) (unknown) While alcohol is (units (unknown) date) well known to unknown) speed the onset of sleep, it disrupts sleep in (unknown) (no (unknown) (unknown) [History (units (unkno wn) date) Confirmed unknown) 06/20/22] (unknown) (no (unknown) (unknown) activities, you (units (unknown) date) may have more unknown) problems getting back to sleep during the night. (unknown) (no (unknown) (unknown) addition, (units (unkn own) date) avoiding unknown) nighttime bright light exposure, which can occur with many (unknown) (no (unknown) (unknown) almost no time, (units (unknown) date) normal bedtime unknown) ([id number]), normal wake time (0530), sleep (unknown) (no (unknown) (unknown) and wakefulness. (units (unknown) date) Scheduled napping unknown) may be considered if appropriate for the (unknown) (no (unknown) (unknown) as opposed to (units ( unknown) date) using more unknown) medication. She is willing to try behavioral therapy (unknown) (no (unknown) (unknown) at night, reports (units (unknown) date) dry mouth, denies unknown) sore throat in the morning, denies nocturnal (unknown) (no (unknown) (unknown) be an independent (units (unknown) date) problem. Her unknown) sleep study and previous chart were reviewed. She (unknown) (no (unknown) (unknown) bed a little (units (u nknown) date) early. discussed unknown) sleep restriction and the use of a nap as needed, (unknown) (no (unknown) (unknown) bedtime. Also (units (u nknown) date) dietary changes unknown) can cause sleep problems, if someone is struggling (unknown) (no (unknown) (unknown) biotin 10,000 (units ( unknown) date) mcg PO BID unknown) 11/22/20 [History Confirmed 06/20/22] (unknown) (no (unknown) (unknown) bring your (units (unk nown) date) problems to bed. unknown) (unknown) (no (unknown) (unknown) burn symptoms at (units (unknown) date) night, reports unknown) nocturia (once per night), denies pain, reports (unknown) (no (unknown) (unknown) by trouble (units (unk nown) date) falling asleep, unknown) trouble staying asleep and non-restorative sleep. (unknown) (no (unknown) (unknown) can be seen (units (un known) date) secondary to unknown) sleep apnea, insomnia, depression, medical conditions (unknown) (no (unknown) (unknown) changes and (units (un known) date) continue with unknown) current medication dosage for now. (unknown) (no (unknown) (unknown) cocktail), (units (unk nown) date) reports caffeine unknown) Sleep Caffeine Branch: 1-5 servings a day, reports (unknown) (no (unknown) (unknown) comfortable, the (units (unknown) date) room should be unknown) quiet, not too hot or cold, or too bright. (unknown) (no (unknown) (unknown) conversations (units ( unknown) date) and activities unknown) before trying to go to sleep. Don't dwell on, or (unknown) (no (unknown) (unknown) cough, reports (units (unknown) date) nocturnal unknown) palpitations (sometimes with anxiety), denies heart (unknown) (no (unknown) (unknown) daytime (units (unkno wn) date) sleepiness. She unknown) is concerned currently with multiple awakenings during (unknown) (no (unknown) (unknown) daytime sleeping (units (unknown) date) and an elevated unknown) [place] Sleepiness Scale score of 05/23. This (unknown) (no (unknown) (unknown) denies night (units (un known) date) sweats, reports unknown) morning headache (better), reports nasal congestion (unknown) (no (unknown) (unknown) did not see a (units ( unknown) date) significant unknown) improvement. She did well with Lunesta in the past. (unknown) (no (unknown) (unknown) dishes. And, (units (u nknown) date) remember, unknown) chocolate has caffeine. (unknown) (no (unknown) (unknown) dizziness in the (units (unknown) date) morning unknown) (occasional), denies trouble consentrating/foc using (unknown) (no (unknown) (unknown) done before bed (units (unknown) date) to help initiate unknown) a restful night's sleep. (unknown) (no (unknown) (unknown) dosage; in this (units (unknown) date) case, shet was unknown) started at 50mg for 2 weeks and then increased to (unknown) (no (unknown) (unknown) drowsy. (units (unkno wn) date) unknown) (unknown) (no (unknown) (unknown) durng the day, (units (unknown) date) reports unknown) depression and reports anxiety (unknown) (no (unknown) (unknown) eszopiclone 1 mg (units (unknown) date) tablet 1 mg PO unknown) BEDTIME PRN insomnia #30 tabs 01/10/22 [Rx (unknown) (no (unknown) (unknown) frequent, early (units (unknown) date) morning awakening unknown) frequent, spending time in bed not sleeping (unknown) (no (unknown) (unknown) guard) Bruxism (units ( unknown) date) Branch: unknown) currently, sleep talking Sleep Talking Branch: denied and (unknown) (no (unknown) (unknown) has been (units (unkno wn) date) diagnosed with unknown) idiopathic hypersomnia and chronic insomnia in the past. (unknown) (no (unknown) (unknown) have occurred. (units (unknown) date) If there are any unknown) questions, please contact the Medical Records (unknown) (no (unknown) (unknown) her sleep (units (unkn own) date) history and her unknown) latest sleep study, which was negative for a primary (unknown) (no (unknown) (unknown) hypersomnia with (units (unknown) date) chronic insomnia unknown) for which she was on Adderall and Lunesta. She (unknown) (no (unknown) (unknown) hypersomnia (units (un known) date) unknown) (unknown) (no (unknown) (unknown) insomnia (units (unkno wn) date) treatment patient unknown) reports well-controlled on treatment (unknown) (no (unknown) (unknown) late with more (units (unknown) date) night awakenings unknown) of late. (unknown) (no (unknown) (unknown) levothyroxine (units ( unknown) date) 200 mcg tablet unknown) (Synthroid) 200 mcg PO DAILY 06/20/22 [History (unknown) (no (unknown) (unknown) listen to the (units ( unknown) date) radio, or read as unknown) if you associate falling asleep with these (unknown) (no (unknown) (unknown) may occur. (units (unk nown) date) Occasional unknown) wrong-word or 'sound-alike' substitutions may have (unknown) (no (unknown) (unknown) modafinil 100 mg (units (unknown) date) tablet 100 mg PO unknown) QAM Hypersomnia #30 tabs 04/05/22 [Rx (unknown) (no (unknown) (unknown) morning. This (units ( unknown) date) continues to work unknown) well for her with less daytime sleeping and an (unknown) (no (unknown) (unknown) nortriptyline 50 (units (unknown) date) mg capsule 50 mg unknown) PO DAILY 04/13/19 [History Confirmed 06/20/22] (unknown) (no (unknown) (unknown) not appreciated, (units (unknown) date) apnea not unknown) witnessed, choking or gasping Choking or Gasping (unknown) (no (unknown) (unknown) occurred due to (units (unknown) date) the inherent unknown) limitations of voice recognition software. Please (unknown) (no (unknown) (unknown) older people who (units (unknown) date) may not venture unknown) outside as frequently as children and adults. (unknown) (no (unknown) (unknown) optimal sleep (units ( unknown) date) schedule. unknown) (unknown) (no (unknown) (unknown) or can be a (units (un known) date) primary problem. unknown) The modafinil is typically started at 100 mg (unknown) (no (unknown) (unknown) personal (units (unkno wn) date) electronic unknown) devices, can also help maintain a healthy sleep-wake cycle. (unknown) (no (unknown) (unknown) read the note (units ( unknown) date) carefully and unknown) recognize, using context, where these substitutions (unknown) (no (unknown) (unknown) reviewed. (units (unkn own) date) unknown) (unknown) (no (unknown) (unknown) schedule Sleep (units (unknown) date) Schedule Branch: unknown) consistent, daytime somnolence absent, snoring (unknown) (no (unknown) (unknown) schedule. She (units ( unknown) date) has been doing unknown) well on the 0.5 mg of lunesta with frequent nights (unknown) (no (unknown) (unknown) sentences, no (units ( unknown) date) audible wheezes, unknown) no grunting and not labored (unknown) (no (unknown) (unknown) sleep disorder. (units (unknown) date) Stress most unknown) likely is the trigger of this bout of insomnia, (unknown) (no (unknown) (unknown) sleep quality (units ( unknown) date) okay and daytime unknown) sleepiness Daytime Sleepiness Branch 2: better (unknown) (no (unknown) (unknown) sleep walking (units ( unknown) date) Sleep Walking unknown) Branch: denied (unknown) (no (unknown) (unknown) sleepiness. She (units (unknown) date) had a sleep study unknown) and MSLT and was diagnosed with idiopathic (unknown) (no (unknown) (unknown) software. (units (unkn own) date) Although every unknown) effort is made to edit content, loading inspector errors (unknown) (no (unknown) (unknown) starting dose (units ( unknown) date) unknown) (unknown) (no (unknown) (unknown) staying asleep (units (unknown) date) regularly and is unknown) feeling sleepier during the day. We discussed (unknown) (no (unknown) (unknown) stimulant (units (unkn own) date) therapy unknown) (modafinil) and reports sleeping pills (lunesta) (unknown) (no (unknown) (unknown) sumatriptan (units (un known) date) succinate 6 unknown) mg/0.5 mL subcutaneous cartridge (refill) 6 mg SUBCUT (unknown) (no (unknown) (unknown) taken in the (units (u nknown) date) morning or late unknown) afternoon. A relaxing exercise, like yoga, can be (unknown) (no (unknown) (unknown) the day. (units (unkno wn) date) unknown) (unknown) (no (unknown) (unknown) the night. (units (unk nown) date) unknown) (unknown) (no (unknown) (unknown) the second half (units (unknown) date) as the body unknown) begins to metabolize the alcohol, causing arousal. (unknown) (no (unknown) (unknown) treatment stable (units (unknown) date) on treatment unknown) (unknown) (no (unknown) (unknown) vitamin B (units (unkn own) date) complex (B unknown) Complex-Vitamin B12 tablet) 1 tab PO DAILY 04/13/19 (unknown) (no (unknown) (unknown) was weaned off (units (unknown) date) the medication unknown) and a repeat sleep study did not show excessive (unknown) (no (unknown) (unknown) which case she (units (unknown) date) does not take it. unknown) She feels she has not been sleep as well of (unknown) (no (unknown) (unknown) which has been (units (unknown) date) going on for over unknown) a year. 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 she unknown) reports night awakenings of late and has been going to Result panel 5 (unknown) (no (unknown) (unknown) (no value) (units (unk nown) date) unknown) (unknown) (no (unknown) (unknown) (1) Insomnia: (units ( unknown) date) unknown) (unknown) (no (unknown) (unknown) (2) Idiopathic (units (unknown) date) hypersomnia: unknown) (unknown) (no (unknown) (unknown) * Eszopiclone; (units (unknown) date) effective at 0.5 unknown) mg, does not use every night (unknown) (no (unknown) (unknown) * Zaleplon (units (unk nown) date) unknown) (unknown) (no (unknown) (unknown) * Zolpoidem; (units (u nknown) date) ineffective unknown) (unknown) (no (unknown) (unknown) 0 = Would never (units (unknown) date) doze or sleep, 1 unknown) = Slight chance of dozing or sleeping, 2 = (unknown) (no (unknown) (unknown) 05/23. This can (units (unknown) date) be seen secondary unknown) to sleep apnea, insomnia, depression, medical (unknown) (no (unknown) (unknown) 06/20/22 1628 (units ( unknown) date) unknown) (unknown) (no (unknown) (unknown) 06/20/22 (units (unkno wn) date) unknown) (unknown) (no (unknown) (unknown) [id number] (units (unkno wn) date) unknown) (unknown) (no (unknown) (unknown) Adhere to (units (unkn own) date) regular mealtime unknown) schedule, avoid snacking (unknown) (no (unknown) (unknown) Affect: normal (units (unknown) date) affect unknown) (unknown) (no (unknown) (unknown) Age/Sex: 41 / F (units (unknown) date) Date of Service: unknown) (unknown) (no (unknown) (unknown) Allergies (units (unkn own) date) unknown) (unknown) (no (unknown) (unknown) [place], [place] (units ( unknown) date) [id number] unknown) (unknown) (no (unknown) (unknown) Anxiety (units (unkno wn) date) unknown) (unknown) (no (unknown) (unknown) Assessment + (units (u nknown) date) Plan unknown) (unknown) (no (unknown) (unknown) Assessment and (units (unknown) date) Plan: unknown) (unknown) (no (unknown) (unknown) Associate your (units ( unknown) date) bed with sleep. unknown) It's not a good idea to use your bed to watch TV, (unknown) (no (unknown) (unknown) Attending Dr: (units ( unknown) date) Astrid Carrion unknown) [place] (unknown) (no (unknown) (unknown) Avoid alcohol (units ( unknown) date) after 4 pm unknown) (unknown) (no (unknown) (unknown) Avoid (units (unkno wn) date) medications which unknown) may interfere with sleep (unknown) (no (unknown) (unknown) Avoid random (units (u nknown) date) napping during unknown) the day; it can disturb the normal pattern of sleep (unknown) (no (unknown) (unknown) Avoid stimulants (units (unknown) date) such as caffeine, unknown) nicotine, and alcohol too close to bedtime. (unknown) (no (unknown) (unknown) Being a (units (unkno wn) date) passenger in a unknown) motor vehicle for an hour or so: 0 = Never (None) (unknown) (no (unknown) (unknown) Bipolar disorder (units (unknown) date) unknown) (unknown) (no (unknown) (unknown) Branch: denied, (units (unknown) date) epworth sleep unknown) scale score (02/20), bruxism (some clenching,mouth (unknown) (no (unknown) (unknown) Cardiac (units (unkno wn) date) unknown) (unknown) (no (unknown) (unknown) Chief Complaint: (units (unknown) date) Follow up unknown) medication therapy for idiopathic hypersomnia (unknown) (no (unknown) (unknown) Clinical Course (units (unknown) date) unknown) (unknown) (no (unknown) (unknown) Cognition: (units (unk nown) date) normal cognition unknown) (unknown) (no (unknown) (unknown) Condition is (units (u nknown) date) Onset: currently unknown) stable and Chronic and ongoing condition (unknown) (no (unknown) (unknown) Confirmed (units (unkn own) date) 06/20/22] unknown) (unknown) (no (unknown) (unknown) Conjunctivae: (units ( unknown) date) conjunctivae unknown) normal (unknown) (no (unknown) (unknown) Consider weaning (units (unknown) date) caffeine use, unknown) starting with no caffeine after 3pm (unknown) (no (unknown) (unknown) Const (units (unkno wn) date) unknown) (unknown) (no (unknown) (unknown) Continue on (units (un known) date) Modafinil 1/2 tab unknown) of 100 mg tab (unknown) (no (unknown) (unknown) Controlled (units (unk n) date) substance unknown) agreement signed and scanned in to the chart. (unknown) (no (unknown) (unknown) : 1980 (units (unknown) date) Acct:[id number] unknown) (unknown) (no (unknown) (unknown) Denies chest (units (u nknown) date) pain unknown) (unknown) (no (unknown) (unknown) Denies daytime (units (unknown) date) sleepiness and unknown) Reports difficulty sleeping (unknown) (no (unknown) (unknown) Denies dyspnea (units (unknown) date) at night unknown) (unknown) (no (unknown) (unknown) Depression (units (unk nown) date) unknown) (unknown) (no (unknown) (unknown) Details: (units (unkno wn) date) unknown) (unknown) (no (unknown) (unknown) Documented By: (units (unknown) date) Astrid Carrion unknown) [facility] 06/20/22 1453 (unknown) (no (unknown) (unknown) Drowsy driving (units (unknown) date) handout made unknown) available. (unknown) (no (unknown) (unknown) Ears: hearing (units ( unknown) date) grossly normal unknown) bilaterally (unknown) (no (unknown) (unknown) Effort + (units (unkno wn) date) Inspection: unknown) normal respiratory effort, able to speak in complete (unknown) (no (unknown) (unknown) Ensure adequate (units (unknown) date) exposure to unknown) natural light. This is particularly important for (unknown) (no (unknown) (unknown) [place] Score: 5 (units (unknown) date) unknown) (unknown) (no (unknown) (unknown) [place] (units (unkno wn) date) Sleepiness Scale unknown) (unknown) (no (unknown) (unknown) Establish a (units (unk nown) date) regular relaxing unknown) bedtime routine. Try to avoid emotionally upsetting (unknown) (no (unknown) (unknown) Exacerbating/All (units (unknown) date) eviating Factors unknown) (unknown) (no (unknown) (unknown) Exam (units (unkno wn) date) unknown) (unknown) (no (unknown) (unknown) Eyes (units (unkno wn) date) unknown) (unknown) (no (unknown) (unknown) Family History (units (unknown) date) (Reviewed unknown) 01/10/22 @ 14:58 by J Luis Tirado MD) (unknown) (no (unknown) (unknown) Family/Other CAD (units (unknown) date) (coronary artery unknown) disease) (unknown) (no (unknown) (unknown) Father (units (unkno wn) date) Hypertension unknown) (unknown) (no (unknown) (unknown) Food can be (units (un known) date) disruptive right unknown) before sleep; stay away from large meals close to (unknown) (no (unknown) (unknown) General: (units (unkno wn) date) cooperative, unknown) comfortable (casually groomed) and no acute distress (unknown) (no (unknown) (unknown) General: patient (units (unknown) date) alert and patient unknown) oriented x3 (unknown) (no (unknown) (unknown) Get regular (units (un known) date) moderate exercise unknown) (30 minutes, 3x/week) (unknown) (no (unknown) (unknown) Grandfather (units (un known) date) Dementia unknown) (unknown) (no (unknown) (unknown) HENMT (units (unkno wn) date) unknown) (unknown) (no (unknown) (unknown) HPI Sleep Follow (units (unknown) date) Up unknown) (unknown) (no (unknown) (unknown) HPI (units (unkno wn) date) unknown) (unknown) (no (unknown) (unknown) Head: normal to (units (unknown) date) inspection unknown) (unknown) (no (unknown) (unknown) Hypersomnia (units (un known) date) Treatment unknown) Response/Side Effects: adherent to current narcolepsy (unknown) (no (unknown) (unknown) Hypersomnia (units (un known) date) unknown) (unknown) (no (unknown) (unknown) Hypothyroidism (units (unknown) date) unknown) (unknown) (no (unknown) (unknown) Idiopathic (units (unk nown) date) hypersomnia unknown) (unknown) (no (unknown) (unknown) Initially (units (unkn own) date) presented to [facility] unknown) in 2008 with a complaint of snoring and daytime (unknown) (no (unknown) (unknown) Insomnia type: (units (unknown) date) unspecified unknown) Qualified Code(s): G47.00 - Insomnia, (unknown) (no (unknown) (unknown) Insomnia (units (unkno wn) date) unknown) (unknown) (no (unknown) (unknown) Intake (units (unkno wn) date) unknown) (unknown) (no (unknown) (unknown) Light exposure (units (unknown) date) during the day unknown) helps maintain a healthy sleep-wake cycle. In (unknown) (no (unknown) (unknown) Loc: SLEEP (units (unk nown) date) unknown) (unknown) (no (unknown) (unknown) Lunesta 1 mg (units (u nknown) date) tab, 1/2 tab at unknown) bedtime as needed (unknown) (no (unknown) (unknown) Lying down in (units ( unknown) date) the afternoon: 3 unknown) = High (unknown) (no (unknown) (unknown) Make sure that (units ( unknown) date) the sleep unknown) environment is pleasant and relaxing. The bed should be (unknown) (no (unknown) (unknown) Medical History (units (unknown) date) (Reviewed unknown) 01/10/22 @ 14:58 by J Luis Tirado MD) (unknown) (no (unknown) (unknown) Medication (units (unk nown) date) review over the unknown) years: (unknown) (no (unknown) (unknown) Medications (units (un known) date) unknown) (unknown) (no (unknown) (unknown) Medications: (units (u nknown) date) unknown) (unknown) (no (unknown) (unknown) Methylphenidate; (units (unknown) date) helpful; unknown) discontinued because couldn't take amphetamine (unknown) (no (unknown) (unknown) Modafinil; more (units (unknown) date) helpful at very unknown) low doses then recommended (unknown) (no (unknown) (unknown) Moderate chance (units (unknown) date) of dozing or unknown) sleeping, 3 = High chance of dozing or sleeping (unknown) (no (unknown) (unknown) Mood: congruent (units (unknown) date) mood unknown) (unknown) (no (unknown) (unknown) Mother Alcohol (units (unknown) date) abuse unknown) (unknown) (no (unknown) (unknown) Neuro (units (unkno wn) date) unknown) (unknown) (no (unknown) (unknown) New (units (unkno wn) date) unknown) (unknown) (no (unknown) (unknown) No Known Drug (units ( unknown) date) Allergies Allergy unknown) (Verified 06/20/22 14:53) (unknown) (no (unknown) (unknown) Nutritional (units (un known) date) Appearance: unknown) overweight (unknown) (no (unknown) (unknown) ONCE 06/20/22 (units ( unknown) date) [History unknown) Confirmed 06/20/22] (unknown) (no (unknown) (unknown) Obesity (units (unkno wn) date) unknown) (unknown) (no (unknown) (unknown) PFSH (units (unkno wn) date) unknown) (unknown) (no (unknown) (unknown) [employer] database (units (u nknown) date) shows no unknown) diversion behavior. Refill provided. (unknown) (no (unknown) (unknown) [employer] database (units (u nknown) date) shows no unknown) diversion behavior. Refills provided today. (unknown) (no (unknown) (unknown) [employer] database (units (u nknown) date) shows no unknown) diversion behavior. Refills provided. (unknown) (no (unknown) (unknown) Pain scale (units (unk nown) date) (1-10): 0 unknown) (unknown) (no (unknown) (unknown) Pain (units (unkno wn) date) unknown) (unknown) (no (unknown) (unknown) Patient (units (unkno wn) date) instructed to use unknown) scheduled naps as needed for drowsiness safety (unknown) (no (unknown) (unknown) Patient reports (units (unknown) date) alcohol Sleep unknown) Alcohol Branch: daily (one glass of wine or a (unknown) (no (unknown) (unknown) Patient reports (units (unknown) date) difficulty unknown) falling asleep is denied, difficulty staying asleep (unknown) (no (unknown) (unknown) Patient reports (units (unknown) date) symptoms of unknown) chronic insomnia for more than 3 months as evidenced (unknown) (no (unknown) (unknown) Patient was (units (un known) date) instructed to unknown) avoid driving or operating heavy machinery when (unknown) (no (unknown) (unknown) Patient: (units (unkno wn) date) John Olguin R unknown) MR#: [id number] (unknown) (no (unknown) (unknown) Pertinent (units (unkn own) date) Positives/Negativ unknown) es (unknown) (no (unknown) (unknown) Plan (units (unkno wn) date) unknown) (unknown) (no (unknown) (unknown) Primary insomnia (units (unknown) date) unknown) (unknown) (no (unknown) (unknown) Properly timed (units (unknown) date) exercise can unknown) promote good sleep. Vigorous exercise should be (unknown) (no (unknown) (unknown) Psych (units (unkno wn) date) unknown) (unknown) (no (unknown) (unknown) Psychological (units ( unknown) date) unknown) (unknown) (no (unknown) (unknown) Qualifiers: (units (un known) date) unknown) (unknown) (no (unknown) (unknown) Questionnaires (units (unknown) date) unknown) (unknown) (no (unknown) (unknown) ROS Sleep (units (unkn own) date) unknown) (unknown) (no (unknown) (unknown) Reason For Visit (units (unknown) date) unknown) (unknown) (no (unknown) (unknown) Reports napping (units (unknown) date) not at all unknown) (unknown) (no (unknown) (unknown) Reports seasonal (units (unknown) date) allergies unknown) (unknown) (no (unknown) (unknown) Resp (units (unkno wn) date) unknown) (unknown) (no (unknown) (unknown) Respiratory (units (un known) date) unknown) (unknown) (no (unknown) (unknown) Sclera: sclerae (units (unknown) date) normal unknown) (unknown) (no (unknown) (unknown) She is moving (units ( unknown) date) next week and was unknown) encouraged to find a new provider as soon as (unknown) (no (unknown) (unknown) She is moving (units ( unknown) date) out of state next unknown) week and was encouraged to find a new PCP as (unknown) (no (unknown) (unknown) Signed By: (units (unk nown) date) <Electronically unknown) signed by Astrid Carrion> (unknown) (no (unknown) (unknown) Signed (units (unkno wn) date) unknown) (unknown) (no (unknown) (unknown) Sitting and (units (un known) date) Readin = unknown) Never (None) (unknown) (no (unknown) (unknown) Sitting and (units (un known) date) talking to unknown) someone: 0 = Never (None) (unknown) (no (unknown) (unknown) Sitting inactive (units (unknown) date) in a public unknown) place: 1 = Slight (unknown) (no (unknown) (unknown) Sitting quietly (units (unknown) date) after lunch (no unknown) alcohol): 1 = Slight (unknown) (no (unknown) (unknown) Sleep Visit (units (un known) date) unknown) (unknown) (no (unknown) (unknown) [facility]) (unknown) (no (unknown) (unknown) Smoking Status: (units (unknown) date) Never smoker unknown) (unknown) (no (unknown) (unknown) Speech: speech (units (unknown) date) normal unknown) (unknown) (no (unknown) (unknown) Status: Chronic (units (unknown) date) unknown) (unknown) (no (unknown) (unknown) Stopped for a (units ( unknown) date) few minutes in unknown) traffic: 0 = Never (None) (unknown) (no (unknown) (unknown) Subsequent sleep (units (unknown) date) study negative unknown) for primary disorder. She continues to have (unknown) (no (unknown) (unknown) Symptoms (units (unkno wn) date) unknown) (unknown) (no (unknown) (unknown) The patient (units (un known) date) reports symptoms unknown) of excessive daytime sleepiness as evidenced by (unknown) (no (unknown) (unknown) This can be seen (units (unknown) date) secondary to unknown) sleep apnea, depression, medical conditions or can (unknown) (no (unknown) (unknown) This note may (units ( unknown) date) have been all or unknown) partially generated using voice recognition (unknown) (no (unknown) (unknown) Tobacco + (units (unkn own) date) Substance Use unknown) (unknown) (no (unknown) (unknown) Tobacco Status (units (unknown) date) unknown) (unknown) (no (unknown) (unknown) Treatment (units (unkno wn) date) Effects: Insomnia unknown) Treatment Response/Side Effects: adherent to current (unknown) (no (unknown) (unknown) Treatment (units (unkn own) date) Response/Side unknown) Affects (unknown) (no (unknown) (unknown) Visit Reasons: (units (unknown) date) 6m-meds-pt moving unknown) soon (unknown) (no (unknown) (unknown) Visit type (FU): (units (unknown) date) follow up unknown) evaluation of insomnia and follow up evaluation of (unknown) (no (unknown) (unknown) Watching TV: 0 = (units (unknown) date) Never (None) unknown) (unknown) (no (unknown) (unknown) While alcohol is (units (unknown) date) well known to unknown) speed the onset of sleep, it disrupts sleep in (unknown) (no (unknown) (unknown) [History (units (unkno wn) date) Confirmed unknown) 06/20/22] (unknown) (no (unknown) (unknown) activities, you (units (unknown) date) may have more unknown) problems getting back to sleep during the night. (unknown) (no (unknown) (unknown) addition, (units (unkn own) date) avoiding unknown) nighttime bright light exposure, which can occur with many (unknown) (no (unknown) (unknown) almost no time, (units (unknown) date) normal bedtime unknown) ([id number]), normal wake time (0530), sleep (unknown) (no (unknown) (unknown) and wakefulness. (units (unknown) date) Scheduled napping unknown) may be considered if appropriate for the (unknown) (no (unknown) (unknown) at (units (unkno wn) date) . unknown) (unknown) (no (unknown) (unknown) at night, reports (units (unknown) date) dry mouth, denies unknown) sore throat in the morning, denies nocturnal (unknown) (no (unknown) (unknown) be an (units (unkno wn) date) independent unknown) problem. Her previous chart note reviewed. She has been (unknown) (no (unknown) (unknown) bedtime. Also (units (u nknown) date) dietary changes unknown) can cause sleep problems, if someone is struggling (unknown) (no (unknown) (unknown) biotin 10,000 (units ( unknown) date) mcg PO BID unknown) 11/22/20 [History Confirmed 06/20/22] (unknown) (no (unknown) (unknown) bring your (units (unk nown) date) problems to bed. unknown) (unknown) (no (unknown) (unknown) burn symptoms at (units (unknown) date) night, reports unknown) nocturia (once per night), denies pain, reports (unknown) (no (unknown) (unknown) by trouble (units (unk nown) date) falling asleep, unknown) trouble staying asleep and non-restorative sleep. (unknown) (no (unknown) (unknown) cocktail), (units (unk nown) date) reports caffeine unknown) Sleep Caffeine Branch: 1-5 servings a day, reports (unknown) (no (unknown) (unknown) comfortable, the (units (unknown) date) room should be unknown) quiet, not too hot or cold, or too bright. (unknown) (no (unknown) (unknown) conditions or can (units (unknown) date) be a primary unknown) problem. Currently doing well with modafinil 50mg (unknown) (no (unknown) (unknown) continue with (units ( unknown) date) current unknown) medication dosage for now. (unknown) (no (unknown) (unknown) conversations (units ( unknown) date) and activities unknown) before trying to go to sleep. Don't dwell on, or (unknown) (no (unknown) (unknown) cough, reports (units (unknown) date) nocturnal unknown) palpitations (sometimes with anxiety), denies heart (unknown) (no (unknown) (unknown) daily. This (units (un known) date) continues to work unknown) well for her with less daytime sleeping and an (unknown) (no (unknown) (unknown) daytime sleeping (units (unknown) date) and an originally unknown) elevated [place] Sleepiness Scale score of (unknown) (no (unknown) (unknown) denies night (units (un known) date) sweats, reports unknown) morning headache (better), reports nasal congestion (unknown) (no (unknown) (unknown) diagnosed with (units (unknown) date) idiopathic unknown) hypersomnia and chronic insomnia in the past. 'Latest (unknown) (no (unknown) (unknown) dishes. And, (units (u nknown) date) remember, unknown) chocolate has caffeine. (unknown) (no (unknown) (unknown) disorder, would (units (unknown) date) be reasonable to unknown) wean from the medication and see how she does. (unknown) (no (unknown) (unknown) dizziness in the (units (unknown) date) morning unknown) (occasional), denies trouble consentrating/foc using (unknown) (no (unknown) (unknown) done before bed (units (unknown) date) to help initiate unknown) a restful night's sleep. (unknown) (no (unknown) (unknown) drowsiness were (units (unknown) date) reviewed. unknown) (unknown) (no (unknown) (unknown) drowsy. (units (unkno wn) date) unknown) (unknown) (no (unknown) (unknown) due to the (units (unk nown) date) inherent unknown) limitations of voice recognition software. Please read the (unknown) (no (unknown) (unknown) durng the day, (units (unknown) date) reports unknown) depression and reports anxiety (unknown) (no (unknown) (unknown) eszopiclone (units (un known) date) (Lunesta) unknown) (unknown) (no (unknown) (unknown) eszopiclone 1 mg (units (unknown) date) tablet (Lunesta) unknown) 1 mg PO BEDTIME #30 tabs 06/20/22 [Rx (unknown) (no (unknown) (unknown) frequent, early (units (unknown) date) morning awakening unknown) frequent, spending time in bed not sleeping (unknown) (no (unknown) (unknown) guard) Bruxism (units ( unknown) date) Branch: unknown) currently, sleep talking Sleep Talking Branch: denied and (unknown) (no (unknown) (unknown) hypersomnia with (units (unknown) date) chronic insomnia unknown) for which she was on Adderall and Lunesta. (unknown) (no (unknown) (unknown) hypersomnia (units (un known) date) unknown) (unknown) (no (unknown) (unknown) improved [place] (units (unknown) date) Sleepiness Scale unknown) score of 24. Risks and symptoms of (unknown) (no (unknown) (unknown) insomnia (units (unkno wn) date) treatment patient unknown) reports well-controlled on treatment (unknown) (no (unknown) (unknown) levothyroxine (units ( unknown) date) 200 mcg tablet unknown) (Synthroid) 200 mcg PO DAILY 06/20/22 [History (unknown) (no (unknown) (unknown) listen to the (units ( unknown) date) radio, or read as unknown) if you associate falling asleep with these (unknown) (no (unknown) (unknown) medications and (units (unknown) date) discuss CBT at unknown) her next visit. (unknown) (no (unknown) (unknown) modafinil 100 mg (units (unknown) date) tablet 100 mg PO unknown) QAM #30 tabs 06/20/22 [Rx Confirmed 06/20/22] (unknown) (no (unknown) (unknown) modafinil (units (unkn own) date) unknown) (unknown) (no (unknown) (unknown) nortriptyline 50 (units (unknown) date) mg capsule 50 mg unknown) PO DAILY 04/13/19 [History Confirmed 06/20/22] (unknown) (no (unknown) (unknown) not appreciated, (units (unknown) date) apnea not unknown) witnessed, choking or gasping Choking or Gasping (unknown) (no (unknown) (unknown) note carefully (units (unknown) date) and recognize, unknown) using context, where these substitutions have (unknown) (no (unknown) (unknown) occurred. If (units (u nknown) date) there are any unknown) questions, please contact the Medical Records Dept (unknown) (no (unknown) (unknown) older people who (units (unknown) date) may not venture unknown) outside as frequently as children and adults. (unknown) (no (unknown) (unknown) optimal sleep (units ( unknown) date) schedule. unknown) (unknown) (no (unknown) (unknown) personal (units (unkno wn) date) electronic unknown) devices, can also help maintain a healthy sleep-wake cycle. (unknown) (no (unknown) (unknown) possible. (units (unkn own) date) unknown) (unknown) (no (unknown) (unknown) reasonable to (units ( unknown) date) try weaning from unknown) medications and offer other alternatives to (unknown) (no (unknown) (unknown) schedule Sleep (units (unknown) date) Schedule Branch: unknown) consistent, daytime somnolence absent, snoring (unknown) (no (unknown) (unknown) sentences, no (units ( unknown) date) audible wheezes, unknown) no grunting and not labored (unknown) (no (unknown) (unknown) sleep quality (units ( unknown) date) okay and daytime unknown) sleepiness Daytime Sleepiness Branch 2: better (unknown) (no (unknown) (unknown) sleep study, (units (u nknown) date) negative for a unknown) primary sleep disorder'. She continues to have (unknown) (no (unknown) (unknown) sleep walking (units ( unknown) date) Sleep Walking unknown) Branch: denied (unknown) (no (unknown) (unknown) sleepiness. She (units (unknown) date) had a sleep study unknown) and [facility] and was diagnosed with idiopathic (unknown) (no (unknown) (unknown) software. 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 unknown) Since her sleep study was negative for primary (unknown) (no (unknown) (unknown) starting dose (units ( unknown) date) unknown) (unknown) (no (unknown) (unknown) stimulant (units (unkn own) date) therapy unknown) (modafinil) and reports sleeping pills (lunesta) (unknown) (no (unknown) (unknown) sumatriptan (units (un known) date) succinate 6 unknown) mg/0.5 mL subcutaneous cartridge (refill) 6 mg SUBCUT (unknown) (no (unknown) (unknown) symptoms. She (units ( unknown) date) has been doing unknown) well on the 0.5 mg of lunesta with frequent nights (unknown) (no (unknown) (unknown) symptoms. (units (unkno wn) date) Symptoms unknown) currently controlled with modafinil 100mg, one-half tablet in (unknown) (no (unknown) (unknown) take one half (units ( unknown) date) tab before bed 1 unknown) mg PO BEDTIME 30 tabs 0RF (unknown) (no (unknown) (unknown) take one half (units ( unknown) date) tab every morning unknown) 100 mg PO QAM 30 tabs 0RF (unknown) (no (unknown) (unknown) taken in the (units (u nknown) date) morning or late unknown) afternoon. A relaxing exercise, like yoga, can be (unknown) (no (unknown) (unknown) the morning and (units (unknown) date) lunesta 1 mg, unknown) one-half tablet before bed as needed. Would be (unknown) (no (unknown) (unknown) the second half (units (unknown) date) as the body unknown) begins to metabolize the alcohol, causing arousal. (unknown) (no (unknown) (unknown) treatment stable (units (unknown) date) on treatment unknown) (unknown) (no (unknown) (unknown) unspecified (units (un known) date) unknown) (unknown) (no (unknown) (unknown) vitamin B (units (unkn own) date) complex (B unknown) Complex-Vitamin B12 tablet) 1 tab PO DAILY 04/13/19 (unknown) (no (unknown) (unknown) whilst enlisted (units (unknown) date) in the [employer] unknown) (unknown) (no (unknown) (unknown) with a sleep (units (u nknown) date) problem, it's not unknown) a good time to start experimenting with spicy (unknown) (no (unknown) (unknown) without (units (unkno wn) date) medication. She unknown) is willing to try behavioral therapy changes and (unknown) (no (unknown) (unknown) y occur. (units (unkno wn) date) Occasional unknown) wrong-word or 'sound-alike' substitutions may have occurred Social History date description facility +0000 Never smoked tobacco (finding) [facility] Vital Signs date measurement value units +0000 BMI BMI 30.8 kg/m2 +0000 BP_diastolic BP_diastolic 85 mmHg +0000 BP_systolic BP_systolic 118 mmHg +0000 heart_rate heart_rate 114 /min +0000 height_metric height_metric 170.18 cm +0000 height_standard height_standard 67 in +0000 respiration_rate respiration_rate 14 /min +0000 temperature_metric temperature_metric 36.5 C +0000 temperature_standard temperature_standard 9 7.7 F +0000 weight_metric weight_metric 89.358 g_ code +0000 weight_standard weight_standard 89.358 g_code
--- NOTE | 2022-08-19 08:14 | CT Report ---
PROCEDURE: CT neck with contrast INDICATIONS: R submandibular swelling CONTRAST: 100 ML OMNI 300 TECHNIQUE: After the administration of intravenous contrast, 3.0 mm axial acquired from the sella to the aortic arch. 3 mm thick coronal reformats were generated. For radiation dose reduction, the fo llowing was used: automated exposure control, adjustment of mA and/or kV according to patient size. COMPARISON: None. FINDINGS: Skull Base: The visualized intracranial contents, skull, and orbits are unremarkable. Nasal septum i s intact without perforation. Mild mucosal thickening noted along the floors of both maxillary sinuse s Pharynx and Larynx: The nasopharyngeal airway is patent and midline. Parapharyngeal soft tissues in cluding palantine tonsils and base of the tongue are normal. Retropharyngeal space unremarkable. No rmal appearance of the false and true vocal cords. Muscles and Fascial Planes : Fascial planes are well maintained. No abscess or mass lesion. Lymph Nodes: Bilateral level 2 adenopathy measures up to 1 cm in short axis Vasculature: Unremarkable. Submandibular and Parotid Glands: Swelling and inflammatory edema noted associated with the right sub mandibular gland. Left submandibular gland as well as the parotid glands unremarkable. No evidence of calculi Thyroid: Atrophic Bones: No acute fracture. No osteolytic or blastic lesion is evident. Normal bone mineralization. Lung Apices: The visualized lung apices are clear. IMPRESSION: 1. Right submandibular sialoadenitis. No evidence of stone or duct obstruction. Note: Final report is concordant with preliminary interpretation provided by [employer] Reviewed by: French Orona MD on 08/19/2022 7:13 AM [place] Approved by: French Orona MD on 08/19/2022 7:13 AM [place] Station ID: [id number]
== END 2022-08-19 05:16 | disposition home or self-care (01) ==
LOC: ED 01:39
DX: K11.20 Sialoadenitis, unspecified (principal)
CPT/HCPCS: 36415; 70491; 80048; 85025; 87070; 87430; 99282; 99284; A9270; Q9967